=== PATIENT | male | born 1940 | race Caucasian/White ===

== ENCOUNTER 2022-01-16 10:32 | Outpatient (CLI) | payer MEDICARE, BC, SELFPAY ==
[2022-01-16 13:28] LABS: Chloride* 106 mmol/L (96-114); Potassium* 4.9 mmol/L (3.6-5.1); Sodium* 140 mmol/L (135-149)
[2022-01-16 13:30] LABS: Cholesterol* 204 mg/dL (90-199); Creatinine* 1.1 mg/dL (0.5-1.5); Estimated Glomerular Filt Rate 68 ml/min
[2022-01-16 13:31] LABS: Blood Urea Nitrogen* 23 mg/dL (7-30); Calcium* 8.8 mg/dL (8.4-10.6); Carbon Dioxide* 28 mmol/L (20-32); Glucose* 86 mg/dL (60-115); HDL Cholesterol* 42 mg/dL (>=40); LDL Cholesterol Calculated 130 mg/dL (<100); Triglycerides* 161 mg/dL (40-149)
[2022-01-16 14:07] LABS: PSA Screen* < 0.06 ng/mL (0.10-4.00)
== END 2022-01-16 10:33 | disposition home or self-care (01) ==
PROVIDERS: PCP Internal Medicine; Visit Provider Internal Medicine
DX: Z00.00 Encounter for general adult medical examination without abnormal findings (principal); I10 Essential (primary) hypertension; Z85.46 Personal history of malignant neoplasm of prostate; Z13.6 Encounter for screening for cardiovascular disorders; Z12.5 Encounter for screening for malignant neoplasm of prostate
CPT/HCPCS: 80048; 80061; 84153

== ENCOUNTER 2022-06-14 12:56 | Emergency (ER) | payer MEDICARE, BC, SELFPAY ==
[2022-06-14] VITALS (12 sets, daily range): BP systolic 159; BP diastolic 82; PULSE 56–64; RESP 18; TEMP 37.4; O2SAT 95–100; BMI 28.7
--- NOTE | 2022-06-14 13:51 | CRLHL7_ITS ---
For Patients: As a result of the Cures Act, medical imaging exams and procedure reports are released immediately into your electronic medical record. You may view this report before your referring provider. If you have questions, please contact your health care provider. INDICATION: [id number]. TECHNIQUE: Chest 1 views. COMPARISON: November 16, 2020. FINDINGS: Cardiovascular and mediastinum: Stable heart size and vasculature. Lungs and pleural spaces: Bibasilar subtle consolidations. Obscuration of the left hemidiaphragm, possibly related to airspace disease/trace pleural effusion.. No pneumothorax. Bones and soft tissues: No significant findings. IMPRESSION: Subtle bibasilar consolidations, possibly atelectasis or pneumonia in the appropriate clinical setting. Dictated by Miguelangel Gallagher MD @ 06/14/2022 3:20:35 PM (Electronically Signed)
[2022-06-14 14:17] LABS: Eosinophils Percent Auto 0.4 % (0.0-7.0); Hematocrit 36.6 % (37.0-53.0); Hemoglobin* 11.5 gm/dL (13.5-17.5); Immature Granulocytes Pct Auto 0.1 %; Lymphocytes Percent Auto 92.2 % (20-44); Mean Corpuscular HGB Conc 31 gm/dL (32-36); Mean Corpuscular Hemoglobin 28 pg (26-34); Mean Corpuscular Volume 90 fL (80-100); Monocytes Percent Auto 1.3 % (0.0-11.0); Platelet Count* 180 K/uL (140-440); RDW Coefficient of Variation % 13.5 % (11.5-15.5); Red Blood Count 4.05 m/uL (4.30-5.90)
[2022-06-14 14:37] LABS: Albumin* 3.6 g/dL (3.3-5.0); Chloride* 111 mmol/L (96-114); Sodium* 140 mmol/L (135-149)
[2022-06-14 14:38] LABS: Potassium* 4.5 mmol/L (3.6-5.1)
[2022-06-14 14:40] LABS: Creatinine* 1.3 mg/dL (0.5-1.5); Est. Creatinine Clearance* 46.02; Estimated Glomerular Filt Rate 55 ml/min
[2022-06-14 14:41] LABS: Alanine Aminotransferase* 19 U/L (4-50); Alkaline Phosphatase* 71 U/L (40-150); Aspartate Amino Transferase* 24 U/L (12-35); Bilirubin Direct* 0.1 mg/dL (0.0-0.5); Bilirubin Total* 0.6 mg/dL (0.1-1.5); Blood Urea Nitrogen* 25 mg/dL (7-30); Calcium* 8.5 mg/dL (8.4-10.6); Carbon Dioxide* 26 mmol/L (20-32); Glucose* 101 mg/dL (60-115); Magnesium* 2.1 mg/dL (1.5-2.6); Slide Review Reflex Yes; Total Protein* 6.1 g/dL (6.0-8.3); White Blood Count* 54.32 K/uL (4.50-11.00)
[2022-06-14 14:42] LABS: Slide Review Acceptable Review (Acceptable)
[2022-06-14 15:08] LABS: C Reactive Protein* < 0.5 mg/dL (0.5-1.0); NT Pro B Type NatriureticPept* 339 pg/mL; Troponin I* < 0.01 ng/mL (0.01-0.04)
--- NOTE | 2022-06-14 15:16 | ED_ITS ---
HPI - General Adult General Chief complaint: Shortness of Breath/Dyspnea Stated complaint: Shortness of breath Time Seen by Provider: 06/14/22 13:30 History of Present Illness HPI narrative: 82-year-old man presenting to the emergency department on recommendation after calling in to clinic. Had hoped to see his primary care provider does not have any availability. Apparently about 2 and half weeks ago had what he thought was an influenza like illness. Has continued to be quite fatigued and with shortness of breath since that time. Her his fatigue is such that does not even seem to have energy for the most basic of tasks. Describes it alternatively is a lack of motivation. Even mentions depression though this has not been an issue since many decades ago may have had some depression. Denies chest pain. He does not have history of heart problems. Denies cough though I do hear him cough as I exit the room. Apparently would be unproductive. No fever. Has not noticed much in the way of weight loss or gain; describes about 6 lb of recent fluctuation. No dysuria frequency urgency. Does have a history of CLL. Notes a to be relatively stable. Has not received treatment. Gets labs checked about every 6 months. I am able to see in this EMR while reviewing records a white count at a little over 37,000 in December of 2020. Information obtained through [place] later. Apparently white count was [id number] with platelets of a [id number] in February of 2022. Related Data Home Medications Medication Instructions Recorded Confirmed acetaminophen 325 mg tablet 325 - 600 mg PO DAILY PRN 01/16/22 06/14/22 ferrous fumarate-vitamin C 132 1 tab PO DAILY 01/16/22 06/14/22 mg-250 mg tablet ketoconazole 2 % topical cream 1 applic topical DAILY 01/16/22 06/14/22 sildenafil 100 mg tablet 100 mg PO .As Needed PRN 01/16/22 06/14/22 triamcinolone acetonide 0.1 % 1 topical QAM 01/16/22 05/09/22 topical ointment Previous Rx's Medication Instructions Recorded omeprazole 20 mg capsule,delayed 20 mg PO DAILY #90 caps 01/16/22 release triamterene 37.5 1 cap PO DAILY #90 caps 01/16/22 mg-hydrochlorothiazide 25 mg capsule amlodipine 5 mg tablet 5 mg PO QHS #45 tabs 05/09/22 Allergies Allergy/AdvReac Type Severity Reaction Status Date / Time almond oil Allergy Intermediate Face Verified 06/14/22 13:17 swelling Review of Systems Status of ROS: Reports: 10 or more systems reviewed and unremarkable except as noted in History and below [facility] Medical History (Updated 06/14/22 @ 17:09 by Jonnathan Park MD) Health care directive on file History of depression (2016) History of peptic ulcer (10/2011) History of upper gastrointestinal bleeding Surgical History (Updated 01/16/22 @ 08:51 by Rosa Allison MD) History of prostatectomy History of repair of hiatal hernia (2021) History of umbilical hernia repair (01/2007) Social History Smoking Status: Never smoker Do you use any of these nicotine containing products: None Second hand tobacco smoke exposure: No How often do you have a drink containing alcohol: never How often do you have six or more drinks on one occasion: Never AUDIT-C Alcohol total score: 0 Non-prescribed substance use: denies use Little interest or pleasure in doing things: several days Feeling down, depressed, or hopeless: several days service: No Exam Narrative: Exam Narrative: Pleasant. NAD. Reading a book when I enter the room. Breathing easily. Cranial nerves 2-12 look to be intact. Head is atraumatic. Oropharynx is unremarkable neck supple without lymphadenopathy. No JVD. Mucous membranes are not particularly pale. Lungs sound to be clear. Heart is with a regular rate and with a regular rhythm. Abdomen is soft nontender. Extremities are without edema -maybe a little dependent edema and around the ankles bilaterally. Const: Vital Signs, click to edit/add: Vital Signs - 24 hr 06/14/22 13:13 06/14/22 13:50 06/14/22 13:19 Temperature 99.3 F Pulse Rate Pulse Rate [Left P ulse Oximeter] 64 Respiratory Rate 18 Blood Pressure 159/82 H Blood Pressure [Ri ght Upper Arm] 159/82 H Pulse Oximetry 98 100 Oxygen Delivery Me thod Room Air 06/14/22 13:20 06/14/22 13:30 06/14/22 13:45 Temperature Pulse Rate 60 58 L 60 Pulse Rate [Left P ulse Oximeter] Respiratory Rate Blood Pressure Blood Pressure [Ri ght Upper Arm] Pulse Oximetry 98 95 95 Oxygen Delivery Me thod 06/14/22 14:00 06/14/22 14:15 06/14/22 14:30 Temperature Pulse Rate 56 L 59 L 56 L Pulse Rate [Left P ulse Oximeter] Respiratory Rate Blood Pressure Blood Pressure [Ri ght Upper Arm] Pulse Oximetry 95 97 96 Oxygen Delivery Me thod 06/14/22 14:45 06/14/22 15:00 06/14/22 15:15 Temperature Pulse Rate 57 L 61 58 L Pulse Rate [Left P ulse Oximeter] Respiratory Rate Blood Pressure Blood Pressure [Ri ght Upper Arm] Pulse Oximetry 96 97 96 Oxygen Delivery Nh thod Documenting provider has reviewed patient's vital signs: yes Course Vital Signs Vital signs: Initial Vital Signs Temperature 99.3 F 06/14/22 13:13 Temperature Source Temporal Artery Scan 06/14/22 13:13 Pulse Rate 64 06/14/22 13:13 Pulse Rhythm 06/14/22 13:13 Pulse Strength 3+ Normal 06/14/22 13:13 Respiratory Rate 18 06/14/22 13:13 Blood Pressure 159/82 H 06/14/22 13:13 Blood Pressure Mean 107 06/14/22 13:13 Blood Pressure Position Sitting 06/14/22 13:13 Pulse Oximetry 98 06/14/22 13:13 Oxygen Delivery Method 06/14/22 13:13 Vital Signs Temperature 99.3 F 06/14/22 13:13 Pulse Rate 64 06/14/22 13:13 Respiratory Rate 18 06/14/22 13:13 Blood Pressure 159/82 H 06/14/22 13:13 Pulse Oximetry 98 06/14/22 13:13 Oxygen Delivery Method 06/14/22 13:13 Temperature 99.3 F 06/14/22 13:13 Pulse Rate 58 L 06/14/22 15:15 Respiratory Rate 18 06/14/22 13:13 Blood Pressure 159/82 H 06/14/22 13:19 Pulse Oximetry 96 06/14/22 15:15 Oxygen Delivery Method 06/14/22 13:13 Medical Decision Making MDM Narrative Medical decision making narrative: Seems relatively well. Is not having any respiratory difficulty. Given duration and history of CLL though I think labs and at least chest x-ray are in order. Chest x-ray reviewed by me shows some increased density into the bases bilaterally. Radiology over-read questions pneumonia versus atelectasis. Monitored on oximetry without event. Labs rather unremarkable except for white count of 54,000 and hemoglobin which has drifted a little bit down to 11.5 from around 14 as I understand. Possibly CLL is related in his fatigue. Tested negative for influenza though doubtful any antigen present even if had been infected with this 2 and half weeks ago. COVID also negative. Given appearance in chest x-ray did add RSV but this was also negative. Did speak with heme Onc from [place]. They concur to treat for potential pneumonia with antibiotics and then close follow-up. Given injection of Rocephin in emergency department followup outpatient antibiotics. Lab Data Lab results reviewed: Yes I reviewed the patient's lab results Labs: Lab Results 06/14/22 06/14/22 06/14/22 Range/Units 13:51 14:06 14:06 WBC 54.32 H* (4.50-11.00) K/uL RBC 4.05 L (4.30-5.90) m/uL Hgb 11.5 L (13.5-17.5) gm/dL Hct 36.6 L (37.0-53.0) % MCV 90 (80-100) fL MCH 28 (26-34) pg MCHC 31 L (32-36) gm/dL RDW Coeff of Ramonita 13.5 (11.5-15.5) % Plt Count 180 (140-440) K/uL Neut % (Auto) 6.0 L (42.0-72.0) % Lymph % (Auto) 92.2 H (20-44) % Lares % (Auto) 1.3 (0.0-11.0) % Eos % (Auto) 0.4 (0.0-7.0) % Baso % (Auto) 0.0 (0.0-3.0) % Neut # (Auto) 3.30 (1.7-7.0) K/uL Lymph # (Auto) 50.10 H (0.90-2.90) K/uL [place] # (Auto) 0.70 (0.00-0.90) K/UL Eos # (Auto) 0.20 (0.00-0.50) K/uL Baso # (Auto) 0.00 (0.00-0.30) K/uL Diff Slide Review Acceptable Review (Acceptable) Sodium 140 (135-149) mmol/L Potassium 4.5 (3.6-5.1) mmol/L Chloride 111 (96-114) mmol/L Carbon Dioxide 26 (20-32) mmol/L BUN 25 (7-30) mg/dL Creatinine 1.3 (0.5-1.5) mg/dL Estimated Creat Clear 46.02 Estimated GFR 55 ml/min Glucose 101 (60-115) mg/dL Calcium 8.5 (8.4-10.6) mg/dL Magnesium 2.1 (1.5-2.6) mg/dL Total Bilirubin 0.6 (0.1-1.5) mg/dL Direct Bilirubin 0.1 (0.0-0.5) mg/dL AST 24 (12-35) U/L ALT 19 (4-50) U/L Alkaline Phosphatase 71 (40-150) U/L Troponin I < 0.01 L (0.01-0.04) ng/mL C-Reactive Protein < 0.5 L (0.5-1.0) mg/dL NT-Pro-B Natriuret Pep 339 pg/mL Total Protein 6.1 (6.0-8.3) g/dL Albumin 3.6 (3.3-5.0) g/dL Vitamin B12 (243-894) pg/mL TSH (0.270-4.20) uIU/mL Urine Color Yellow (Yellow) Urine Appearance Clear (Clear) Urine pH 6.0 (5.0-8.5) Ur Specific [place] 1.025 (1.000-1.030) Urine Protein Negative (Negative) Urine Glucose (UA) Negative (Negative) Urine Ketones Trace A (Negative) Urine Blood Negative (Negative) Urine Nitrite Negative (Negative) Urine Bilirubin Negative (Negative) Urine Urobilinogen 0.2 (0.2-1.0) Ur Leukocyte Esterase Negative (Negative) Urine RBC 0-2 (0-2) Urine WBC 0-2 (0-5) Ur Squamous Epith Cells None (None-Few) Urine Bacteria Few A (None) Fine Granular Casts Few A (None) SARS-CoV-2 (PCR) (Negative) Influenza Type A (PCR) (Negative) Influenza Type B (PCR) (Negative) RSV (PCR) (Negative) 06/14/22 06/14/22 06/14/22 Range/Units 14:06 14:06 14:40 WBC (4.50-11.00) K/uL RBC (4.30-5.90) m/uL Hgb (13.5-17.5) gm/dL Hct (37.0-53.0) % MCV (80-100) fL MCH (26-34) pg MCHC (32-36) gm/dL RDW Coeff of Ramonita (11.5-15.5) % Plt Count (140-440) K/uL Neut % (Auto) (42.0-72.0) % Lymph % (Auto) (20-44) % Lares % (Auto) (0.0-11.0) % Eos % (Auto) (0.0-7.0) % Baso % (Auto) (0.0-3.0) % Neut # (Auto) (1.7-7.0) K/uL Lymph # (Auto) (0.90-2.90) K/uL La[place] # (Auto) (0.00-0.90) K/UL Eos # (Auto) (0.00-0.50) K/uL Baso # (Auto) (0.00-0.30) K/uL Diff Slide Review (Acceptable) Sodium (135-149) mmol/L Potassium (3.6-5.1) mmol/L Chloride (96-114) mmol/L Carbon Dioxide (20-32) mmol/L BUN (7-30) mg/dL Creatinine (0.5-1.5) mg/dL Estimated Creat Clear Estimated GFR ml/min Glucose (60-115) mg/dL Calcium (8.4-10.6) mg/dL Magnesium (1.5-2.6) mg/dL Total Bilirubin (0.1-1.5) mg/dL Direct Bilirubin (0.0-0.5) mg/dL AST (12-35) U/L ALT (4-50) U/L Alkaline Phosphatase (40-150) U/L Troponin I (0.01-0.04) ng/mL C-Reactive Protein (0.5-1.0) mg/dL NT-Pro-B Natriuret Pep pg/mL Total Protein (6.0-8.3) g/dL Albumin (3.3-5.0) g/dL Vitamin B12 370 (243-894) pg/mL TSH 0.826 (0.270-4.20) uIU/mL Urine Color (Yellow) Urine Appearance (Clear) Urine pH (5.0-8.5) Ur Specific [place] (1.000-1.030) Urine Protein (Negative) Urine Glucose (UA) (Negative) Urine Ketones (Negative) Urine Blood (Negative) Urine Nitrite (Negative) Urine Bilirubin (Negative) Urine Urobilinogen (0.2-1.0) Ur Leukocyte Esterase (Negative) Urine RBC (0-2) Urine WBC (0-5) Ur Squamous Epith Cells (None-Few) Urine Bacteria (None) Fine Granular Casts (None) SARS-CoV-2 (PCR) Negative SARS-CoV-2 (Negative) Influenza Type A (PCR) Negative PCR FLU A (Negative) Influenza Type B (PCR) Negative PCR FLU B (Negative) RSV (PCR) Negative PCR RSV (Negative) Discharge Plan Discharge Clinical Impression: Pneumonia, Chronic lymphocytic leukemia, Fatigue Patient Disposition: Home, Self-Care Condition: Stable Additional Instructions: Stay well-hydrated. Doxycycline from [facility]. Return for persistent increasing shortness of breath, fever and associated worsening weakness, chest pain, repeated vomiting. Call to schedule with your editor index to be seen after course of antibiotics. Prescriptions: No Action triamcinolone acetonide 0.1 % ointment 1 topical QAM Rx Instructions: use sparingly ketoconazole 2 % cream 1 applic topical DAILY ferrous fumarate-vitamin C 132-250 mg tablet 1 tab PO DAILY acetaminophen 325 mg tablet 325 - 600 mg PO DAILY PRN Rx Instructions: NO MORE THAN 4000 MG/DAY sildenafil 100 mg tablet 100 mg PO .As Needed PRN Rx Instructions: TAKE 1 TAB 1 HR PRIOR TO INTERCOURSE triamterene-hydrochlorothiazid 37.5-25 mg capsule 1 cap PO DAILY Qty: 90 3RF omeprazole 20 mg capsule,delayed release(DR/EC) 20 mg PO DAILY Qty: 90 3RF amlodipine 5 mg tablet 5 mg PO QHS Qty: 45 0RF Follow Up/Referrals: Rosa Allison MD [Primary Care Provider] - Stand Alone Forms: [facility] Info Instructions
[2022-06-14 15:27] LABS: PCR FLU A Negative PCR FLU A (Negative); PCR FLU B Negative PCR FLU B (Negative); PCR RSV Negative PCR RSV (Negative)
[2022-06-14 15:30] LABS: SARS PCR* Negative SARS-CoV-2 (Negative)
[2022-06-14 15:35] LABS: Thyroid Stimulating Hormone* 0.826 uIU/mL (0.270-4.20)
[2022-06-14 15:53] LABS: Vitamin B12* 370 pg/mL (243-894)
[2022-06-14 16:14] LABS: Appearance Urine Clear (Clear); Bilirubin Urine Negative (Negative); Blood Urine Negative (Negative); Color Urine Yellow (Yellow); Glucose Urine Negative (Negative); Ketones Urine Trace (Negative); Leukocyte Esterase Urine Negative (Negative); Nitrite Urine Negative (Negative); Protein Urine Negative (Negative); Specific Gravity Urine 1.025 (1.000-1.030); Urobilinogen Urine 0.2 (0.2-1.0)
[2022-06-14 16:30] LABS: Bacteria Urine Few; Fine Granular Casts Urine Few; RBC Urine 0-2 (0-2); WBC Urine 0-2 (0-5)
[2022-06-14] MEDS: LIDOCAINE 1% 5 ml (pf) 5 ML VIAL 2.1 ML IM (17:15)
[2022-06-14] MEDS: cefTRIAXone 1 GM VIAL IM (17:15)
== END 2022-06-14 17:25 | disposition home or self-care (01) ==
PROVIDERS: Emergency Provider Family Medicine; PCP Internal Medicine
DX: J18.9 Pneumonia, unspecified organism (principal); C91.10 Chronic lymphocytic leukemia of B-cell type not having achieved remission; R53.83 Other fatigue
CPT/HCPCS: 36415; 71045; 80048; 80076; 81001; 82607; 83735; 83880; 84443; 84484; 85025; 86140; 87086; 87502; 87634; 87635; 94761; 96372; 99284; J0696

== ENCOUNTER 2022-06-22 10:43 | Outpatient (CLI) | payer MEDICARE, BC, SELFPAY ==
[2022-06-22 11:01] LABS: Vitamin B12* 422 pg/mL (243-894)
[2022-06-22 17:43] LABS: Hematocrit 40.4 % (37.0-53.0); Hemoglobin* 12.6 gm/dL (13.5-17.5); Mean Corpuscular HGB Conc 31 gm/dL (32-36); Mean Corpuscular Hemoglobin 29 pg (26-34); Mean Corpuscular Volume 92 fL (80-100); Platelet Count* 134 K/uL (140-440); Red Blood Count 4.38 m/uL (4.30-5.90)
[2022-06-22 19:27] LABS: Slide Review Reflex Yes
[2022-06-22 19:28] LABS: Slide Review Acceptable Review (Acceptable)
== END 2022-06-22 10:44 | disposition home or self-care (01) ==
PROVIDERS: PCP Internal Medicine; Visit Provider Internal Medicine
DX: E53.8 Deficiency of other specified B group vitamins (principal); C91.10 Chronic lymphocytic leukemia of B-cell type not having achieved remission
CPT/HCPCS: 82607; 85027

== ENCOUNTER 2022-12-10 01:33 | Emergency (ER) | payer MEDICARE, BC, SELFPAY ==
[2022-12-10] VITALS (9 sets, daily range): BP systolic 121–165; BP diastolic 69–96; PULSE 43–62; RESP 20; O2SAT 95–97
--- NOTE | 2022-12-10 01:54 | ED_ITS ---
HPI - General Adult General Chief complaint: Chest Pain Stated complaint: chest pain, low pulse, low blood pressure Time Seen by Provider: 12/10/22 01:54 History of Present Illness HPI narrative: Pt aox4, ABCs intact. Pt arrives with for evaluation of chest pressure that woke him up from sleep around 0030. Patient states that the pain goes up into both sides of his neck. Denies SOB or nausea 82-year-old man presenting to the emergency department with some pressure that he has been feeling in both sides of his neck. He noticed that his heart was in the 130s and his pressure was low. Does not report irregular heartbeat. They mention that he was feeling anxious and then wanted his close. She is standing at his bedside holding his hand. Does have a documented history of CLL, anxiety and hypertension, GERD and dysphagia. Tends toward bradycardia they report. Over the last 6 weeks perhaps he has had some soreness in his anterior outer, in the muscle area, the anterior left peguero. Was at 1 point some sort of a strain but it is little unclear. I believe the concern here is a potential blood clot. Spends lot of time gardening, wearing flip-flops sounds like. Prior to this event was without shortness of breath or chest pain. Related Data Home Medications Medication Instructions Recorded Confirmed acetaminophen 325 mg tablet 325 - 600 mg PO DAILY PRN 01/16/22 12/10/22 ferrous fumarate-vitamin C 132 1 tab PO DAILY 01/16/22 12/10/22 mg-250 mg tablet sildenafil 100 mg tablet 100 mg PO .As Needed PRN 01/16/22 12/10/22 triamcinolone acetonide 0.1 % 1 topical QAM 01/16/22 09/26/22 topical ointment doxycycline monohydrate 100 mg 100 mg PO BID 06/26/22 12/10/22 tablet terbinafine HCl 250 mg tablet 250 mg PO QDAY PRN 06/26/22 12/10/22 Previous Rx's Medication Instructions Recorded omeprazole 20 mg capsule,delayed 20 mg PO DAILY #90 caps 01/16/22 release triamterene 37.5 1 cap PO DAILY #90 caps 01/16/22 mg-hydrochlorothiazide 25 mg capsule amlodipine 5 mg tablet 5 mg PO QHS #90 tabs 06/26/22 ketoconazole 2 % topical cream 1 applic topical DAILY #60 grams 11/21/22 Allergies Allergy/AdvReac Type Severity Reaction Status Date / Time almond oil Allergy Intermediate Face Verified 12/10/22 01:39 swelling Review of Systems Status of ROS: Reports: 6 or more systems reviewed and unremarkable except as noted in History and below [facility] Medical History (Updated 12/10/22 @ 04:57 by Jonnathan Park MD) Seborrheic dermatitis ?L21.9 - Seborrheic dermatitis, unspecified (ICD-10) Health care directive on file ?Z78.9 - Other specified health status (ICD-10) History of upper gastrointestinal bleeding ?Z87.19 - Personal history of other diseases of the digestive system (ICD-10) History of peptic ulcer (10/2011) ?Z87.11 - Personal history of peptic ulcer disease (ICD-10) History of depression (2016) ?Z86.59 - Personal history of other mental and behavioral disorders (ICD-10) Surgical History History of prostatectomy ?Z90.79 - Acquired absence of other genital organ(s) (ICD-10) History of umbilical hernia repair (01/2007) ?Z98.890 - Other specified postprocedural states (ICD-10) ?Z87.19 - Personal history of other diseases of the digestive system (ICD-10) History of repair of hiatal hernia (2021) ?Z98.890 - Other specified postprocedural states (ICD-10) ?Z87.19 - Personal history of other diseases of the digestive system (ICD-10) Social History Smoking Status: Never smoker Do you use any of these nicotine containing products: None Second hand tobacco smoke exposure: No How often do you have a drink containing alcohol: never How often do you have six or more drinks on one occasion: Never AUDIT-C Alcohol total score: 0 Non-prescribed substance use: denies use Little interest or pleasure in doing things: several days Feeling down, depressed, or hopeless: several days service: No Exam Narrative: Exam Narrative: Pleasant. NAD. Breathing easily. Neck is supple nontender. Oropharynx is unremarkable. Cranial nerves 2-12 intact. There is no reproducible discomfort to palpation about the neck or jaw. Lungs are clear. Heart in a slow but regular rate and rhythm. Abdomen is soft nontender. He is well-perfused peripherally. Examination of the left lower leg in particular has some soreness described along the anterior tibial musculature. I would say negative Homans. There is no edema in the lower extremities. Const: Vital Signs, click to edit/add: Vital Signs - 24 hr 12/10/22 01:39 12/10/22 02:37 12/10/22 03:00 Pulse Rate 51 L 48 L Pulse Rate [Pulse Oximeter] 62 Respiratory Rate 20 Blood Pressure Blood Pressure [Le ft Upper Arm] 165/96 H Pulse Oximetry 97 96 96 Oxygen Delivery Me thod Room Air 12/10/22 03:02 12/10/22 03:33 12/10/22 04:02 Pulse Rate 49 L 53 L Pulse Rate [Pulse Oximeter] Respiratory Rate Blood Pressure 125/80 126/87 Blood Pressure [Le ft Upper Arm] Pulse Oximetry 96 97 Oxygen Delivery Me thod 12/10/22 04:04 12/10/22 04:30 12/10/22 04:32 Pulse Rate 48 L 43 L 44 L Pulse Rate [Pulse Oximeter] Respiratory Rate Blood Pressure 121/69 Blood Pressure [Le ft Upper Arm] Pulse Oximetry 97 95 96 Oxygen Delivery Me thod Documenting provider has reviewed patient's vital signs: yes Course Vital Signs Vital signs: Initial Vital Signs Pulse Rate 62 12/10/22 01:39 Respiratory Rate 20 12/10/22 01:39 Blood Pressure 165/96 H 12/10/22 01:39 Blood Pressure Mean 119 H 12/10/22 01:39 Pulse Oximetry 97 12/10/22 01:39 Oxygen Delivery Method Room Air 12/10/22 01:39 Vital Signs Pulse Rate 62 12/10/22 01:39 Respiratory Rate 20 12/10/22 01:39 Blood Pressure 165/96 H 12/10/22 01:39 Pulse Oximetry 97 12/10/22 01:39 Oxygen Delivery Method Room Air 12/10/22 01:39 Pulse Rate 44 L 12/10/22 04:32 Respiratory Rate 20 12/10/22 01:39 Blood Pressure 121/69 12/10/22 04:32 Pulse Oximetry 96 12/10/22 04:32 Oxygen Delivery Method Room Air 06/25/23 01:39 Medical Decision Making MDM Narrative Medical decision making narrative: I would watch on monitor for some sort of tachyarrhythmia. He does produce PVCs as I am watching. This may have been exacerbation of anxiety. Perhaps these sy mptoms symptoms were caused by GERD. Certainly could have been ischemic cardiac event and will be looking for this in laboratory evaluation. Pulmonary embolus is a possibility too. Vascular disruption possibility. S discomfort in his shins/left lower leg is inconsistent with location for DVT. I think this more of a muscular issue. EKG as below. Repeat troponins were negative. D-dimer was normal. White count elevated as typical. Symptoms faded to resolution. Overall improved. See patient discharge plan Medical Records Medical records reviewed: Yes I reviewed the patient's medical records Lab Data Lab results reviewed: Yes I reviewed the patient's lab results Labs: Lab Results 12/10/22 12/10/22 12/10/22 Range/Units 00:55 01:55 02:07 WBC 40.86 H* (4.50-11.00) K/uL RBC 4.88 (4.30-5.90) m/uL Hgb 14.4 (13.5-17.5) gm/dL Hct 44.6 (37.0-53.0) % MCV 91 (80-100) fL MCH 30 (26-34) pg MCHC 32 (32-36) gm/dL RDW Coeff of Ramonita 13.7 (11.5-15.5) % Plt Count 102 L (140-440) K/uL Neut % (Auto) 4.7 L (42.0-72.0) % Lymph % (Auto) 93.5 H (20-44) % [place] % (Auto) 1.4 (0.0-11.0) % Eos % (Auto) 0.3 (0.0-7.0) % Baso % (Auto) 0.1 (0.0-3.0) % Neut # (Auto) 1.90 (1.7-7.0) K/uL Lymph # (Auto) 38.20 H (0.90-2.90) K/uL [place] # (Auto) 0.60 (0.00-0.90) K/UL Eos # (Auto) 0.10 (0.00-0.50) K/uL Baso # (Auto) 0.00 (0.00-0.30) K/uL Diff Slide Review Acceptable Review (Acceptable) D-Dimer Quant (PE/DVT) 0.39 (0.00-0.50) ug/ml Sodium 142 (135-149) mmol/L Potassium 4.4 (3.6-5.1) mmol/L Chloride 106 (96-114) mmol/L Carbon Dioxide 27 (20-32) mmol/L BUN 29 (7-30) mg/dL Creatinine 1.3 (0.5-1.5) mg/dL Estimated Creat Clear 47.46 Estimated GFR 55 ml/min Glucose 95 (60-115) mg/dL Calcium 9.1 (8.4-10.6) mg/dL Troponin I < 0.01 L (0.01-0.04) ng/mL C-Reactive Protein < 0.5 L (0.5-1.0) mg/dL NT-Pro-B Natriuret Pep 324 pg/mL POC Troponin I 0.00 L (0.01-0.04) ng/ml 12/10/ Range/Units 03:35 WBC (4.50-11.00) K/uL RBC (4.30-5.90) m/uL Hgb (13.5-17.5) gm/dL Hct (37.0-53.0) % MCV (80-100) fL MCH (26-34) pg MCHC (32-36) gm/dL RDW Coeff of Ramonita (11.5-15.5) % Plt Count (140-440) K/uL Neut % (Auto) (42.0-72.0) % Lymph % (Auto) (20-44) % [place] % (Auto) (0.0-11.0) % Eos % (Auto) (0.0-7.0) % Baso % (Auto) (0.0-3.0) % Neut # (Auto) (1.7-7.0) K/uL Lymph # (Auto) (0.90-2.90) K/uL [place] # (Auto) (0.00-0.90) K/UL Eos # (Auto) (0.00-0.50) K/uL Baso # (Auto) (0.00-0.30) K/uL Diff Slide Review (Acceptable) D-Dimer Quant (PE/DVT) (0.00-0.50) ug/ml Sodium (135-149) mmol/L Potassium (3.6-5.1) mmol/L Chloride (96-114) mmol/L Carbon Dioxide (20-32) mmol/L BUN (7-30) mg/dL Creatinine (0.5-1.5) mg/dL Estimated Creat Clear Estimated GFR ml/min Glucose (60-115) mg/dL Calcium (8.4-10.6) mg/dL Troponin I (0.01-0.04) ng/mL C-Reactive Protein (0.5-1.0) mg/dL NT-Pro-B Natriuret Pep pg/mL POC Troponin I 0.00 L (0.01-0.04) ng/ml ECG Data Attestation: I personally reviewed and interpreted this ECG as follows: (Normal sinus rhythm. Left anterior fascicular block. Rate of 60) Discharge Plan Discharge Clinical Impression: Atypical chest pain Patient Disposition: Home w/ Parent or Adult Condition: Improved Additional Instructions: Yes it would seem that you had, per your description, an episode of rapid heart rate. If this continues to happen I would think that we would want to somehow monitor your heart for a longer period of time. This may have just been some stress/anxiety. Hard to know that at this time. Keep doing things out there that you find enjoyable like gardening. I see no reason to restrict your activities at this time. Otherwise return for recurrence of persistent and rapid heart rate, continued chest pain particularly associated with shortness of breath/nausea/diaphoresis. See handout on peguero pain. I would ice this sore area twice daily over the next few days. Reassess sometime in 10-14 days whether this is continuing to be an issue and needs further evaluation. Prescriptions: No Action triamcinolone acetonide 0.1 % ointment 1 topical QAM Rx Instructions: use sparingly ferrous fumarate-vitamin C 132-250 mg tablet 1 tab PO DAILY acetaminophen 325 mg tablet 325 - 600 mg PO DAILY PRN Rx Instructions: NO MORE THAN 4000 MG/DAY sildenafil 100 mg tablet 100 mg PO .As Needed PRN Rx Instructions: TAKE 1 TAB 1 HR PRIOR TO INTERCOURSE triamterene-hydrochlorothiazid 37.5-25 mg capsule 1 cap PO DAILY Qty: 90 3RF omeprazole 20 mg capsule,delayed release(DR/EC) 20 mg PO DAILY Qty: 90 3RF doxycycline monohydrate 100 mg tablet 100 mg PO BID terbinafine HCl 250 mg tablet 250 mg PO QDAY PRN amlodipine 5 mg tablet 5 mg PO QHS Qty: 90 3RF ketoconazole 2 % cream 1 applic topical DAILY Qty: 60 0RF Follow Up/Referrals: Rosa Allison MD [Primary Care Provider] - Stand Alone Forms: [facility] Info Instructions
[2022-12-10 02:01] LABS: Basophils Percent Auto 0.1 % (0.0-3.0); Eosinophils Percent Auto 0.3 % (0.0-7.0); Hematocrit 44.6 % (37.0-53.0); Hemoglobin* 14.4 gm/dL (13.5-17.5); Lymphocytes Percent Auto 93.5 % (20-44); Mean Corpuscular HGB Conc 32 gm/dL (32-36); Mean Corpuscular Hemoglobin 30 pg (26-34); Mean Corpuscular Volume 91 fL (80-100); Monocytes Percent Auto 1.4 % (0.0-11.0); Neutrophils Percent Auto 4.7 % (42.0-72.0); Platelet Count* 102 K/uL (140-440); RDW Coefficient of Variation % 13.7 % (11.5-15.5); Red Blood Count 4.88 m/uL (4.30-5.90)
--- OUTSIDE RECORDS SUMMARY | 2022-12-10 02:11 | XMS_ITS | Continuity of Care Document ---
Author Name Unknown Organization [facility] Address [address] [address] [place] [address] Phone Care Team Providers Care Crane Crew Supervisor Name Role Phone No Information Unavailable Unavailable Allergies, Adverse Reactions, Alerts Substance Reaction Status Criticality almond Active No Information Medications Medication Instructions Dosage Effective Dates (start - stop) Status Comments EpiPen 2-Rick 0.3 mg/0.3 mL injection, auto-injector inject 0.3 milliliter by intramuscular route once as needed for anaphylaxis 0.3 MG - Active omeprazole 20 mg capsule,delayed release take 2 capsule by oral route every day before a meal 40 MG - Active Viagra 100 mg tablet take 1 tablet by or al route every day as needed approximately 1 hour before sexual activity 100 MG - Active triamterene 37.5 mg-hydrochlorothiazi de 25 mg capsule take 2 capsule by oral route every day 2 capsule - Active Procedures Procedure Date Ugi Endo; W/insrt Guide Wire Ugi Endo; W/bx 1/mx Level Iv-surg Path Gross/micro 18 Offic/outpt E&m New Mod-hi Advance Directives Directive Yes / No Effective Date File Name No Information Encounters Encounter Description Practice Location Reason(s) For Visit Diagnoses Date Provider Providers Copied on Encounter [facility], [address] [address], [place], [place], [id number], [place] tel:[phone] No Information No Information Referring Provider: Rosa Allison MD E, [address] [place], [address]. tel:[phone] [facility] [place], [address] [address], [facility] [place], [id number], tel:[phone] [facility] Hiatal herniaSchatzki's ring of distal esophagusDisease of esophagus, unspecifiedChron ic gastric ulcer without hemorrhage or perforationDiaph ragmatic hernia without obstruction or gangreneChronic gastric ulcer without hemorrhage or perforation [address], [id number], . tel:[phone] Referring Provider: Rosa Chavez, [address] [place], [address]. tel:[phone] Offic/outpt E&m New Mod-hi [facility], [address] [address], [facility] [place], [id number], [place] tel:[phone] [facility] GI Symptoms or Concerns (chief complaint) Esophageal dysphagiaElevate d blood-pressure reading, w/o diagnosis of htn [address] [place] [address], [id number], [place]. tel:[phone] Referring Provider: Rosa Chavez, [address] [place], [address]. tel:[phone] Family History Family Member Type Diagnosis Age At Onset Sister Problem (finding) peptic ulceration Daughter Problem (finding) Alive and well Sister Problem (finding) celiac disease Mother Problem (finding) Mother Problem (finding) diverticulitis of colon Sister Problem (finding) Irritable bowel disease Sister Problem (finding) Alive and well Immunizations Vaccine Date Status Comments Influenza, injectable, quadr ivalent, preservative free, 3 yrs or older administered Source : Other Provider Payers Payer name Insurance type Covered alliance party ID Authoriza tion(s) No Information Social History Type Description Quantity Date Captured Comments Sex Male Smoking Status No Information Chief Complaint And Reason For Visit No Information Reason For Referral Reason For Referral No Information Plan Of Treatment Date Type Action Status No Information History Of Present Illness Encounter Date Complaint History Of Prese nt Illness GI Symptoms or Concerns An appro priate history, physical exam and review of systems was obtained today in clinic and recorded on electronic medical record. Please see below for my assessment and plan.I had the pleasure of seeing Bandar Mcnair today in clinic for difficulty swallowing, worsening over the last two years or so. He is a 77-year-old man with history of chronic disease associated anemia, anxiety, prostate cancer, CLL, heartburn, and hypertension, who presents for worsening dysphagia primarily to solid foods over the last two years. He denies any early satiety, weight loss, vomiting, or hematemesis. He describes mostly solid foods seeming to get stuck in his throat and needing to swallow liquids to get them down. He denies any previous food impactions. He also denies any diarrhea, abdominal pain, melena, or hematochezia. He does have some mild heartburn symptoms, but these are well controlled with omeprazole daily. He has had a upper endoscopy several years ago, which was significant b Functional Status Date Functional Assessmen t No Information Instructions Date Instruction Additional Infor mation Hiatal Hernia Related to Hiata l hernia Schatzki's Ring Related to Hiata l hernia 1. Schedule upper en doscopy to assess for any obstructive lesions and we will plan for a empiric dilation even if no clear stricture is found.2. Continue with omeprazole daily.3. Reviewed diet and lifestyle modification for reflux.4. If no source of dysphagia found on his upper endoscopy and no better after a potential empiric dilation, then we would consider esophageal manometry testing in the future to rule out dysmotility disorder.5. We will schedule any further clinic followup depending on the results of the endoscopy. Related to Esophageal dysphagia Gastroesophageal Reflux Disease Related to Esophageal dysphagia Hiatal Hernia Related to Esoph ageal dysphagia Assessments Type Assessment Date No Information Patient Care Teams Name Effective Dates (start - stop) Status Members No Information
--- OUTSIDE RECORDS SUMMARY | 2022-12-10 02:12 | XMS_ITS | Continuity of Care Document ---
Author Name Unknown Organization [facility] Address [address] [address] [place] [address] Phone Care Team Providers Care Mill Operator Name Role Phone No Information Unavailable Unavailable [...] Encounter [facility], [address] [address], [place], [place], [id number], [place] tel:[phone] No Information No Information Referring Provider: Rosa Allison MD E, [address] [place], [address]. tel:[phone] [facility] [place], [address] [address], [facility] [place], [id number], tel:[phone] [facility] Hiatal herniaSchatzki's ring of distal esophagusDisease of esophagus, unspecifiedChron ic gastric ulcer without hemorrhage or perforationDiaph ragmatic hernia without obstruction or gangreneChronic gastric ulcer without hemorrhage or perforation [address], [id number], . tel:[phone] Referring Provider: Rosa Chavez, [address] [place], [address]. tel:[phone] Offic/outpt E&m New Mod-hi [facility], [address] [address], [facility] [place], [id number], [place] tel:[phone] [facility] GI Symptoms or Concerns (chief complaint) Esophageal dysphagiaElevate d blood-pressure reading, w/o diagnosis of htn [address] [place] [address], [id number], [place]. tel:[phone] Referring Provider: Rosa Chavez, [address] [place], [address]. tel:[phone] Family History Family Member Type Diagnosis Age [...] Provider Payers Payer name Insurance type Covered libertarian ID Authoriza tion(s) No Information Social History [...]
[2022-12-10 02:15] LABS: Chloride* 106 mmol/L (96-114); Potassium* 4.4 mmol/L (3.6-5.1); Sodium* 142 mmol/L (135-149)
[2022-12-10 02:18] LABS: Carbon Dioxide* 27 mmol/L (20-32); Creatinine* 1.3 mg/dL (0.5-1.5); Est. Creatinine Clearance* 47.46; Estimated Glomerular Filt Rate 55 ml/min
[2022-12-10 02:19] LABS: Blood Urea Nitrogen* 29 mg/dL (7-30); Calcium* 9.1 mg/dL (8.4-10.6); Glucose* 95 mg/dL (60-115)
[2022-12-10 02:33] LABS: Slide Review Reflex Yes; White Blood Count* 40.86 K/uL (4.50-11.00)
[2022-12-10 02:40] LABS: Slide Review Acceptable Review (Acceptable)
[2022-12-10 02:41] LABS: Troponin I* < 0.01 ng/mL (0.01-0.04)
[2022-12-10 02:52] LABS: D Dimer Quantitative* 0.39 ug/ml (0.00-0.50)
[2022-12-10 09:08] LABS: C Reactive Protein* < 0.5 mg/dL (0.5-1.0); NT Pro B Type NatriureticPept* 324 pg/mL
== END 2022-12-10 05:19 | disposition home or self-care (01) ==
PROVIDERS: Emergency Provider Family Medicine; PCP Internal Medicine
DX: R07.89 Other chest pain (principal)
CPT/HCPCS: 36415; 80048; 83880; 84484; 85025; 85379; 86140; 93005; 99284

== ENCOUNTER 2023-02-09 07:39 | Outpatient (CLI) | payer MEDICARE, BC, SELFPAY | END 2023-02-09 07:40 | disposition home or self-care (01) | LOC: NFLDREF 02-12 09:06 | PROVIDERS: PCP Internal Medicine; Referring Provider Internal Medicine; Visit Provider Internal Medicine | DX: I10 Essential (primary) hypertension (principal); Z85.46 Personal history of malignant neoplasm of prostate | CPT/HCPCS: 80048; 84153 ==

== ENCOUNTER 2023-08-27 07:44 | Outpatient (CLI) | payer MEDICARE, BC, SELFPAY | END 2023-08-27 07:45 | disposition home or self-care (01) | LOC: NFLDREF 09-07 23:55 | PROVIDERS: PCP Internal Medicine; Referring Provider Internal Medicine; Visit Provider Internal Medicine | DX: E53.8 Deficiency of other specified B group vitamins (principal); C91.10 Chronic lymphocytic leukemia of B-cell type not having achieved remission | CPT/HCPCS: 82607 ==

== ENCOUNTER 2024-03-04 07:35 | Outpatient (CLI) | payer MEDICARE, BC, SELFPAY ==
--- OUTSIDE RECORDS SUMMARY | 2024-03-06 11:24 | XMS_ITS | Encounter Summary ---
Author Organization [facility] Address [address] [place] [address] Care Team Providers Care Coil Winder Repair Name Role Phone Elsewhere, Pcp Primary Care Provider Unavailabl e Reason for Visit * Reason Onset Date Comments Results 12/17/2023 Encounter Details Date Type Department Care Team (Late st Contact Info) Description 12/17/2023 Clinical Communication Division of Hematology in [place], [place] [address] [place] [phone] Rocio Woo R.N. [address] [place] [phone] Results Social History Tobacco Use Types Packs/Day Years Used Date Smoking Tobacco: Never Smokeless Tobacco: Never Alcohol Use Standard Drinks/Week Comments Never 0 (1 standard drink = 0.6 oz pur e alcohol) [facility] Utilities Answer Date Recorded In the past 12 months has [facility] [employer], gas, oil, or water [employer] threatened to shut off services in your home? No 06/17/2023 Humiliation, Afraid, Rape, and Kick questionnair e Answer Date Recorded Within the last year, have y ou been afraid of your partner or ex-partner? No 04/21/2022 Within the last year, have y ou been humiliated or emotionally abused in other ways by your partner or ex-partner? No Within the last year, have y ou been kicked, hit, slapped, or otherwise physically hurt by your partner or ex-partner? No 04/21/2022 Within the last year, have y ou been raped or forced to have any kind of sexual activity by your partner or ex-partner? No 04/21/2022 Social Connection and Isolation Panel [NHANES] A nswer Date Recorded In a typical week, how many times do you talk on the phone with family, friends, or neighbors? Twice a week 04/21/20 22 How often do you get togethe r with friends or relatives? Once a week 04/21/2022 How often do you attend chur ch or hoahaoism services? Never 04/21/2022 Do you belong to any clubs o r organizations such as restorationist groups, unions, fraternal or athletic groups, or school groups? No 04/21/2022 How often do you attend meet ings of the clubs or organizations you belong to? Never 04/21/2022 Are you , , di vorced, , never , or living with a partner? Living with partner 04/21/2022 AUDIT-C Answer Date Recorded Q1: How often do you have a drink containing alc ohol? Never 04/21/2022 Average Number of Drinks Not on file 022 Frequency of Binge Drinking Not on file 09/2021 Overall Financial Resource Strain (CARDIA) Answe r Date Recorded How hard is it for you to pa y for the very basics like food, housing, medical care, and heating? Not hard at all 04/21/2022 [facility] - Occupational Stress Questionnaire Answer Date Recorded Do you feel stress - tense, restless, nervous, or anxious, or unable to sleep at night because your mind is troubled all the time - these days? Rather much 04/21/2022 Exercise Vital Sign Answer Date Recorde d On average, how many days pe r week do you engage in moderate to strenuous exercise (like a brisk walk)? 3 days 06/17/2023 On average, how many minutes do you engage in exercise at this level? 50 min 06/17/2023 Hunger Vital Sign Answer Date Recorded Within the past 12 months, y ou worried that your food would run out before you got the money to buy more. Never true 06/17/20 23 Within the past 12 months, t he food you bought just didn't last and you didn't have money to get more. Never true 06/17/2023 PRAPARE - Transportation Answer Date Re corded In the past 12 months, has l ack of transportation kept you from medical appointments or from getting medications? No 05/20 In the past 12 months, has l ack of transportation kept you from meetings, work, or from getting things needed for daily living? No 06/17/2023 Nutrition Answer Date Recorded Nutrition: EVOO Fat Source Yes 06/17 On average, how many serving s of fruits and vegetables do you eat per day (serving size is equal to 1 cup or approximately the size of a tennis ball)? 0-2 06/17/2023 Dental Answer Date Recorded Dental: Regular Dentist Yes 04/21/20 Employment Answer Date Recorded Employment status Retired 06/17/2023 Housing Stability Answer Date Recorded What is your living situation today? I have a [facility] place to live 06/17/2023 Education Answer Date Recorded What is the highest level of school you have completed or the highest degree you have received? Doctorate 02/22/2021 Sex and Gender Information Value Date Recorded Sex Assigned at Male 02/22/2021 5:30 AM CDT Gender Identity Male 02/22/2021 5:30 AM CDT Sexual Orientation Straight 02/22/2021 5: 30 AM CDT documented as of this encounter Miscellaneous Notes * Telephone Encounter - Rocio Woo I. RThanh - 12/17/2023 9:41 AM CDT SUBJECTIVE CHIEF COMPLAINT / REASON FOR CALL Results Information Discussed ----- Message from Vonnie Pickett P.A.-C., M.S. sent at 12/17/2023 9:27 AM CDT ----- Can you please let him know that I reviewed the results and discussed with Dr. Steele, who recommends ongoing observation and no further testing at this time. Thanks! Patient had no further questions/concerns. PLAN Disposition/Recommendation: CLL on observation. Follow up in May 2024 (6 month follow up) Information/Education: patient/caller able to teach back Caller agreeable to plan of care: yes The following references were used: provider Vonnie Dobbins PA-C recommendations. documented in this encounter Plan of Treatment Not on file documented as of this encounter Visit Diagnoses Not on filedocumented in this encounter Care Teams Coil Winder Repair Relationship Specialty Start Date End Date Elsewhere, Pcp PCP - General Internal Medicine 08/03/21 documented as of this encounter
--- OUTSIDE RECORDS SUMMARY | 2024-03-06 11:24 | XMS_ITS | Referral Summary ---
Author Organization [facility] Address [address] [place] [address] Care Team Providers Care Fire Department Marine Engineer Name Role Phone Elsewhere, Pcp Primary Care Provider Unavailabl e Source Comments Patient records contain information from all sites at [facility]. For routine questions regarding patient records, call [phone] during business hours, M-F 8:00 AM - 5:00 PM Central Time. Record requests for emergency care only can be directed to [phone] at any time.[facility] Encounters Date Type Department Care Team Description 12/17/2023 Clinical Communication Division of Hematology in [place], [place] [address] [place] [phone] Rocio Woo R.N. Results 12/11/2023 11:27 AM CDT - 12/11/2023 11:59 PM CDT Hospital Encounter Department of Laboratory Medicine and Pathology, [facility] in [place], [place] [address] [place] [phone] aDrron Steele M.B.B.S. 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 12/06/2015 Active ketoconazole (NIZORAL) 2 % cream Apply 1 application topically daily as needed for rash (facial). Active sildenafiL (VIAGRA) 50 mg tablet Take 50 mg by mouth as needed for erectile dysfunction. 09/17/2013 Active triamcinolone (KENALOG) 0.025 % cream Apply 1 application topically daily as needed for rash (facial). Active triamterene-hydr oCHLOROthiazide (DYAZIDE) 37.5-25 mg per capsule Take 1 capsule by mouth daily. Active mupirocin (BACTROBAN) 2 % ointment Apply 1 application topically daily as needed (rash (facial)). Active iron,carbonyl-vi tamin C (VITRON-C) 65 mg iron- [address] tablet Take 65 mg of iron by mouth daily. Do not crush or chew. Active amLODIPine (NORVASC) 5 mg tablet 09/28/2022 Active esomeprazole (NexIUM) [address] capsule Take 1 capsule (40 mg total) by mouth 2 (two) times a day before breakfast and dinner. 60 capsule 11 07/04/2023 Active azithromycin (Zithromax) 250 mg tablet Active predniSONE (Deltasone) 20 mg tablet 09/17/2013 Active Active Problems Problem Noted Date Diagnosed Date Fatigue 12/11/2023 Neuropathy Peripheral 04/25/2022 Hernia Hiatal 08/03/2021 Leukemia Lymphocytic Not Having Achieved Remissi on 03/25/2018 Chronic Obstructive Pulmonary Disease Mild 03/25 Gastroesophageal Reflux Disease Without Esophagi tis 07/25/2017 Obstruction Esophagus 07/23/2017 Dysphagia 06/26/2017 Resolved Problems Problem Noted Date Diagnosed Date Resolved Date Anemia B12 Deficiency 12/11/20232023 Immunizations Name Administration Dates Next Due H1N1 Inj 04/19/2009 HZV (ZOSTAVAX) 06/08/2008 Influenza Split 04/29/2007 Influenza high dose QV(65 ye ars or older) (PF) 03/02/2021 Influenza, Seasonal, Injectable 03/14/2011,03/18 Influenza, Unspecified 04/29/2007 PCV13 08/13/2014 PPSV23 05/09/2010 RZV (SHINGRIX) 02/12/2019,12/02/2018 SARS-COV-2 (COVID-19) - PFIZ ER (Discontinued)(12 years or older) 02/18/2021 Td Preservative Free (TENIVAC, DECAVAC) 05/08/20 12,06/08/2008,09/10/2007 Tdap 02/26/2022,05/08/2012 influenza trivalent vaccine (6 months and older)(PF) 05/08/2012 influenza vaccine QV(FLUBLOK ) (18 years or older) (PF) 03/30/2019 influenza vaccine quad (FLUZ ONE/FLUARIX) (6 months and older)(PF) 03/23/2014,03/24/2013 Social History Tobacco Use Types Packs/Day Years Used Date Smoking Tobacco: Never Smokeless Tobacco: Never Alcohol Use Standard Drinks/Week Comments Never 0 (1 standard drink = 0.6 oz pur e alcohol) [facility] Utilities Answer Date Recorded In the past 12 months has e [employer], gas, oil, or water [employer] threatened to shut off services in your [...] often do you attend chur ch or adventist services? Never 04/21/2022 Do you belong to any clubs o r organizations such as religious groups, unions, fraternal or athletic groups, or [...] and heating? Not hard at all 04/21/2022 [facility] Occup[facility] ional Health - Occupational Stress [...] your living situation today? I have a [facility] place to live 06/17/2023 Education Answer Date Recorded What is the highest level of school you have completed or the highest degree you have received? Doctorate 02/22/2021 Sex and Gender Information Value Date Recorded Sex Assigned at Male 02/22/2021 5:30 AM CDT Gender Identity Male 02/22/2021 5:30 AM CDT Sexual Orientation Straight 02/22/2021 5: 30 AM CDT Last Filed Vital Signs Vital Sign Reading Time Taken Comments Blood Pressure 144/72 12/11/2023 2:40 PM CDT Pulse 54 12/11/2023 2:40 PM CDT Temperature 35.9 ??C (96.6 ??F) 12/11/2023 2:40 PM CD T Respiratory Rate 15 06/19/2023 2:00 PM LUCERNE FARMER Oxygen Saturation 95% 06/19/2023 2:00 PM LUCERNE FARMER Inhaled Oxygen Concentration - - Weight 104 kg (228 lb 9.9 oz) 12/11/2023 2:40 PM CDT Height 181.9 cm (5' 11.61) 12/11/2023 2:40 PM C DT Body Mass Index 31.34 12/11/2023 2:40 PM CDT Plan of Treatment Not on file Medical Devices Implanted Type Area Stretcher Drier Operator Device Identifier Shelf Expiration Date Model / Serial / Lot Mesh Or Patch Mesh or Patch Abdomen Procedures Procedure Name Priority Date/Time Associated Diagnosis Comments SPSMA RESULT Routine 12/11/2023 11:39 AM CDT FOLATE, S Routine 12/11/2023 11:39 AM CDT 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) VITAMIN B12 ASSAY, S Routine 12/11/2023 11:39 AM CDT 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) IMMUNOGLOBULIN G (IGG), S Routine 12/11/2023 11:39 AM CDT 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) RETICULOCYTES, B Routine 12/11/2023 11:3 9 AM CDT 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) LACTATE DEHYDROGENASE (LD), S Routine 12/11/2023 11:39 AM CDT 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) CREATININE WITH EGFR, S/P Routine 12/11/2023 11:39 AM CDT 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) CBC WITH DIFFERENTIAL, B Routine 024 11:39 AM CDT 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) BILIRUBIN, TOT, S/P Routine 12/11/2023 1 1:39 AM CDT 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) ASPARTATE AMINOTRANSFERASE (AST), S/P Routine 12/11/2023 11:39 AM CDT 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) ALKALINE PHOSPHATASE, S/P Routine 12/11/2023 11:39 AM CDT 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) HAPTOGLOBIN, S Routine 12/11/2023 11:36 AM CDT 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) Anemia ERYTHROPOIETIN (EPO), S Routine 12/11/19 11:36 AM CDT FERRITIN, S Routine 12/11/2023 11:36 AM CDT 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) from Last 3 Months Results * (ABNORMAL) Morphology Eval (special smear) (12/11/2023 11:39 AM CDT) Neutrophilic Segs and Bands 7(L) 50 - 75 % 12/11/2023 2:14 PM CDT [facility] Lymphocytes 90(H) 18 - 42 % 12/11/2023 2:14 PM CDT [facility] Monocytes 3 2 - 11 % 12/11/2023 2:14 PM CDT [facility] Fragile Cells Marked 12/11/2023 2:14 PM CDT [facility] Manual Absolute Neutrophil Count 2.54 1.56 - 6.45 x10(9)/L 12/11/2023 2:14 PM CDT [facility] Comment: ----ADDITIONAL INFORMATION---- The manual absolute neutrophil count is derived from a manual differential count and therefore is not exactly comparable to the automated absolute neutrophil count. 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 Reviewed by: Eugenie 12/11/2023 2:14 PM CDT [facility] Blood 12/11/2023 11:3 9 AM CDT 12/11/2023 12:11 PM CDT Darron Norton LAB BLOOD ADD-O N [facility] [address] [place] [address], [facility] [address] [place] [address] * Reticulocytes (12/11/2023 11:39 AM CDT) Reticulocytes, B 1.48 0.60 - 2.71 % 12/11/2023 12:41 PM CDT DTL Absolute Reticulocyte 64.8 30.4 - 110.9 x10(9)/L 12/11/2023 12:41 PM CDT DTL Blood (Blood, Venous) 12/11/2023 11:39 AM CDT 12/11/2023 12:11 PM CDT Darron Norton LAB BLOOD ADD-O N Performing Organization Address City/[facility]/ZIP Co de Phone Number [facility] [address] [place] [address], [facility] [address] [place] [address] * (ABNORMAL) CBC with Differential, Blood (12/11/2023 11:39 AM CDT) [facility] [place] [facility] Hemoglobin 12.8(L) 13.2 - 16.6 g/dL 12/11/2023 12:41 PM CDT DTL Hematocrit 40.6 38.3 - 48.6 % 12/11/2023 12:41 PM CDT DTL Erythrocytes 4.38 4.35 - 5.65 x10(12)/L 12/11/2023 12:41 PM CDT DTL MCV 92.7 78.2 - 97.9 fL 12/11/2023 12:41 PM CDT DTL RBC Distrib Width 14.3 11.8 - 14.5 % 12/11/2023 12:41 PM CDT DTL Platelet Count 117(L) 135 - 317 x10(9)/L 12/11/2023 12:41 PM CDT DTL Leukocytes 36.3(H) 3.4 - 9.6 x10(9)/L 12/11/2023 2:14 PM CDT DTL Comment:Results confirmed by smear. Neutrophils See Comment 1.56 - 6.45 x10(9)/L 12/11/2023 2:14 PM CDT [facility] Comment:Auto-diff results no t valid. See manual differential. Blood (Blood, Venous) 12/11/2023 11:39 AM CDT 12/11/2023 12:11 PM CDT Darron Norton LAB BLOOD ADD-O N [facility] [address] [place] [address], [facility] DTL [facility] [address] [place] [address] [facility] [address] [place] [address] * AST (Aspartate Aminotransferase) (12/11/2023 11:39 AM CDT) Aspartate Aminotransferase (AST), S 22 8 - 48 U/L 12/11/2023 12:50 PM CDT DTL Blood (Blood, Venous) 12/11/2023 11:39 AM CDT 12/11/2023 12:26 PM CDT Darron CelayaSAshwini LAB BLOOD ADD-O N [facility] [address] [place] [address] * Alkaline Phosphatase (12/11/2023 11:39 AM CDT) Alkaline Phosphatase, S 60 40 - 129 U/L 12/11/2023 12:50 PM CDT DTL Blood (Blood, Venous) 12/11/2023 11:39 AM CDT 12/11/2023 12:26 PM CDT Darron Norton LAB BLOOD ADD-O N [facility] [address] 200 [place] [address] * LD (Lactate Dehydrogenase) (12/11/2023 11:39 AM CDT) Lactate Dehydrogenase (LD), S 187 122 - 222 U/L 12/11/2023 3:10 PM CDT DTL Blood (Blood, Venous) 12/11/2023 11:39 AM CDT 12/11/2023 12:26 PM CDT Darron CelayaSAshwini LAB BLOOD NON A DD-ON Performing Organization Address City/[facility]/ZIP Co de Phone Number [facility] [address] [place] [address], [facility] [address] [place] [address] * Immunoglobulin G (IgG) (12/11/2023 11:39 AM CDT) Pathologist [facility] Immunoglobulin G (IgG), S 867 767 - 1590 mg/dL 12/11/2023 5:32 PM CDT [facility] Blood (Blood, Venous) 12/11/2023 11:39 AM CDT 12/11/2023 3:57 PM CDT Darron CelayaSAshwini LAB BLOOD ADD-O N Performing Organization Address City/[facility]/ZIP Co de Phone Number [facility] [address] [place] [address] [facility] [address] [place] [address] * Folate (12/11/2023 11:39 AM CDT) [facility] Folate, S >20.0 >=4.0 mcg/L 12/11/2023 1: 08 PM CDT [facility] Blood (Blood, Venous) 12/11/2023 11:39 AM CDT 12/11/2023 12:26 PM CDT Darron CelayaSAshwini LAB BLOOD ADD-O N Performing Organization Address City/[facility]/ZIP Co de Phone Number [facility] [address] [place] [address], [facility] 200 [place] [address] * (ABNORMAL) Vitamin B12 Assay (12/11/2023 11:39 AM CDT) [facility] [place] [facility] Vitamin B12 Assay, S 1009(H) 180 - 914 ng/L 12/11/2023 1:10 PM CDT DT Comment: ----ADDITIONAL INFORMATION---- In patients being evaluated for vitamin B12 deficiency who have intrinsic factor blocking antibodies (IFBA), false elevations of B12 may occur due to IFBA interference thus potentially obscuring a physiological deficiency of B12. If observed B12 concentrations are discordant with clinical presentation, measurement of methylmalonic acid (MMA) should be considered. Blood (Blood, Venous) 12/11/2023 11:39 AM CDT 12/11/2023 12:26 PM CDT Darron CelayaS. LAB BLOOD ADD-O N Performing Organization Address [facility] Co de Phone Number [id number] [place] [address] * (ABNORMAL) Creatinine with Estimated GFR (12/11/2023 11:39 AM CDT) Creatinine 1.41(H) 0.74 - 1.35 mg/dL 12/11/2023 12:50 PM CDT DTL Estimated GFR (eGFR) 50(L) >=60 mL/min/BSA 12/11/2023 12:50 PM CDT DTL Comment: Estimated GFR calculated using the 2020 CKD_EPI creatinine equation. Blood (Blood, Venous) 12/11/2023 11:39 AM CDT 12/11/2023 12:26 PM CDT Darron CelayaS. LAB BLOOD ADD-O N Performing Organization Address [facility] Co de Phone Number [facility] [address] [place] [address], [address] [address] * Bilirubin, Total (12/11/2023 11:39 AM CDT) Bilirubin, Total, S 0.9 0.0 - 1.2 mg/dL 12/11/2023 12:50 PM CDT DTL Blood (Blood, Venous) 12/11/2023 11:39 AM CDT 12/11/2023 12:26 PM CDT Darron Norton LAB BLOOD ADD-O N [facility] [address] [place] [address], [facility] [address] [place] [address] * Erythropoietin (EPO) (12/11/2023 11:36 AM CDT) Pathologist [facility] Erythropoietin (EPO), S 11.0 2.6 - 18.5 mIU/mL 12/11/2023 8:03 PM CDT [facility] Blood 12/11/2023 11:3 6 AM CDT 12/11/2023 6:00 PM CDT Vonnie Pickett P.A.-C. MAshwiniSAshwini LAB BLOOD ADD-ON [facility] [address] [place] [address] [facility] [address] [place] [address] * Haptoglobin (12/11/2023 11:36 AM CDT) [facility] Haptoglobin, S 151 30 - 200 mg/dL 12/12/2023 5:59 PM CDT [facility] Blood (Blood, Venous) 12/11/2023 11:36 AM CDT 12/12/2023 5:29 PM CDT Vonnie Pickett P.A.-C. MAshwiniSAshwini LAB BLOOD ADD-ON [facility] [address] [place] [address] [facility] [address] [place] [address] * Ferritin (12/11/2023 11:36 AM CDT) Ferritin, S 88 31 - 409 mcg/L 12/11/2023 5:27 PM CDT DTL Blood (Blood, Venous) 12/11/2023 11:36 AM CDT 12/11/2023 3:26 PM CDT Vonnie B Piyush Smith MAshwiniS. LAB BLOOD ADD-ON [facility] [address] [place] [address], [facility] DTL [facility] [address] [place] [address] from Last 3 Months Advance Directives For more information, please contact: [phone] Documents on File Type Date Recorded Patient Pets Salesperson Expl anation Advance Directives 08/03/2021 6:25 AM Josefina Mcnair HCPOA/ADVOCATE/AGENT/R EPRESENTATIVE/SURROGAT E * Full Code (Latest Code Status on File) Date Activated Date Inactivated Comments 08/03/2021 2:45 PM 08/04/2021 2:01 PM Question Answer Comments Full Code: Not Discussed Due to: Patient not available Healthcare Agents on File Name Relationship Healthcare Agent Uzair Willams Spouse Health Care Agent Bri Mcnair Child First Alternate Health Care Agent Care Teams Fire Department Marine Engineer Relationship Specialty Start Date End Date Elsewhere, Pcp PCP - General Internal Medicine 08/03/21
--- OUTSIDE RECORDS SUMMARY | 2024-03-06 11:24 | XMS_ITS ---
Author Organization [facility] Address [address] [place] [address] Care Team Providers Care Elevator Operator Freight Name Role Phone Elsewhere, Pcp Primary Care Provider Unavailabl e Active Problems Problem Noted Date Diagnosed Date Fatigue 12/11/2023 Neuropathy Peripheral 04/25/2022 Hernia Hiatal 08/03/2021 Leukemia Lymphocytic Not Having Achieved Remissi on 03/25/2018 Chronic Obstructive Pulmonary Disease Mild 03/25 Gastroesophageal Reflux Disease Without Esophagi tis 07/25/2017 Obstruction Esophagus 07/23/2017 Dysphagia 06/26/2017 Current Oncology Plans No current plan information found. Past Plans No past plan information found. Radiation Treatments * No radiation treatments are documented for this patient in [facility]. Treatments may have been administered in another system. Lifetime Dose Tracking * Chemical Lifetime Dose Automatic Entry Manual Entr y Radiation 138.5 mGy 138.5 mGy 0 mGy Fluoro Time 7.4 minutes 7.4 minutes 0 minutes Resolved Problems Problem Noted Date Diagnosed Date Resolved Date Anemia B12 Deficiency 12/11/20232023
--- OUTSIDE RECORDS SUMMARY | 2024-03-06 11:24 | XMS_ITS | Clinical Summary ---
Author Organization [facility] Address [address] [place] [address] Care Team Providers Care Extractor Operator Solvent Process Name Role Phone Elsewhere, Pcp Primary Care Provider Unavailabl e Source Comments Patient records contain information from all sites at [facility]. For routine questions regarding patient records, call [phone] during business hours, M-F 8:00 AM - 5:00 PM Central Time. Record requests for emergency care only can be directed to [phone] at any time.[facility] Allergies Active Allergy Reactions Criticality Noted Date Comments Antigo Other (see comments) High Other reaction(s): Eye swelling, Facial swelling Antigo Oil Other (see comments) High 12/10/2022 Medications [...] Date Resolved Date Anemia B12 Deficiency 12/11/20232023 Encounters Date Type Department Care Team Description 12/17/2023 Clinical Communication Division of Hematology in [address] [phone] Rocio Woo R.N. Results 12/11/2023 3:00 PM CDT Office Visit Division of Hematology in [address] [phone] Vonnie Pickett P.A.-C., M.S. 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) Discharge Disposition: Home or Self Care 12/07/2023 9:15 AM CDT Clinical Communication Virtual Review in [place], [place] [address] [place] [address] Pre-visit Intake from Last 3 Months Immunizations Name Administration Dates Next Due H1N1 [...] (FLUZ ONE/FLUARIX) (6 months and older)(PF) 03/23/2014,03/24/2013 Family History Medical History Relation Name Comments Skin cancer Father Merrill Mcnair Dementia Maternal Grandfather Bandar Kolton Hypertension Maternal Grandfather Bandar Kolton Obesity Maternal Grandfather Bandar Kolton Anxiety disorder Mother Shraddha Mcnair Depression Mother Shraddha Mcnair Migraines Mother Shraddha Mcnair Stroke Mother Shraddha Mcnair Relation Name Status Comments Father Merrill Mcnair Maternal Grandfather Bandar Hi Mother Shraddha Mcnair Social History Tobacco Use Types Packs/Day Years Used Date Smoking Tobacco: Never Smokeless Tobacco: Never Alcohol Use Standard Drinks/Week Comments Never 0 (1 standard drink = 0.6 oz pur e alcohol) [facility] Utilities Answer Date Recorded In the past 12 months has e [employer], gas, oil, or water [employer] threatened to shut off services in your [...] friends, or neighbors? Twice a week 04/21/20 How often do you get togethe r with friends or relatives? Once a week 04/21/2022 How often do you attend chur ch or adventist services? Never 04/21/2022 Do you belong to any clubs o r organizations such as mu-ism groups, unions, fraternal or athletic groups, or [...] and heating? Not hard at all 04/21/2022 [facility] Occupat ional Health - Occupational Stress [...] your living situation today? [facility] 06/17/2023 Education Answer Date [...] T Respiratory Rate 15 06/19/2023 2:00 PM GRAPHIC ILLUSTRATOR Oxygen Saturation 95% 06/19/2023 2:00 PM GRAPHIC ILLUSTRATOR Inhaled Oxygen Concentration - - Weight 104 kg (228 lb 9.9 oz) 12/11/2023 2:40 PM CDT Height 181.9 cm (5' 11.61) 12/11/2023 2:40 PM C DT Body Mass Index 31.34 12/11/2023 2:40 PM CDT Plan of Treatment Health Maintenance Due Date Last Done Comments Depression Screening (Annual PHQ-2) 06/18/2023 COVID-19 Vaccine ( season) 2024 05/22/2023, 10/07/2022, 03/02/2022, Additional history exists Office Visit for Blood Pressure Check / Re-check 03/12/2024 12/11/2023 Influenza Vaccine (#1) 2024 , 04/03/2022, 03/02/2021, Additional history exists DTaP,Tdap,and Td Vaccines (4 - Td or Tdap) 02/27/2032 02/26/2022, 05/08/2012, 05/08/2012, Additional history exists Pneumococcal vaccine (65+ years) Completed 08/13/2014, 05/09/2010 Zoster Vaccines Completed 02/12/2019, 11/16, 06/08/2008 Fall Risk Screen (Annual) Completed 06/19/2023 HPV Vaccines Aged Out No longer eligi ble based on patient's age to complete this topic Medical Devices Implanted Type Area Video Game Maker Device Identifier Shelf Expiration Date Model / [...] (HCC) Anemia ERYTHROPOIETIN (EPO), S Routine 12/11/19 24 11:36 AM CDT FERRITIN, S Routine 12/11/2023 [...] count. 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 Reviewed by: Eugenie 12/11/2023 2:14 PM CDT [facility] Blood 12/11/2023 11:3 9 AM CDT 12/11/2023 12:11 PM CDT Darron CelayaSAshwini LAB BLOOD ADD-O N Performing Organization Address City/[facility]/ZIP Co de Phone Number [facility] [address] [place], [place] [id number] [place] [address] 200 [place] [address] * Reticulocytes (12/11/2023 11:39 AM CDT) Pathologist [facility] Reticulocytes, B 1.48 0.60 - 2.71 % 12/11/2023 12:41 PM CDT DTL Absolute Reticulocyte 64.8 30.4 - 110.9 x10(9)/L 12/11/2023 12:41 PM CDT DTL Blood (Blood, Venous) 12/11/2023 11:39 AM CDT 12/11/2023 12:11 PM CDT Darron CelayaS. LAB BLOOD ADD-O N Performing Organization Address [facility]/ZIP Co de Phone Number [facility] [address] [place], [place] [address] [address] [place] [address] * (ABNORMAL) CBC with Differential, Blood (12/11/2023 11:39 AM CDT) Hemoglobin 12.8(L) 13.2 - 16.6 g/dL 12/11/2023 [...] - 6.45 x10(9)/L 12/11/2023 2:14 PM CDT [facility] Comment:Auto-diff results no t valid. See manual differential. Blood (Blood, Venous) 12/11/2023 11:39 AM CDT 12/11/2023 12:11 PM CDT Darron CelayaS. LAB BLOOD ADD-O N [facility] [address] [place] [address], [facility] DTL [facility] [address] [place] [address] * AST (Aspartate Aminotransferase) (12/11/2023 11:39 AM CDT) Aspartate Aminotransferase (AST), S 22 8 - 48 U/L 12/11/2023 12:50 PM CDT DTL Blood (Blood, Venous) 12/11/2023 11:39 AM CDT 12/11/2023 12:26 PM CDT Darron CelayaS. LAB BLOOD ADD-O N [facility] [address] [place], [place] [phone] [place] [address] 200 [place] [address] * Alkaline Phosphatase (12/11/2023 11:39 AM CDT) Alkaline Phosphatase, S 60 40 - 129 U/L 12/11/2023 12:50 PM CDT DTL Blood (Blood, Venous) 12/11/2023 11:39 AM CDT 12/11/2023 12:26 PM CDT Darron CelayaSAshwini LAB BLOOD ADD-O N [facility] 200 [place] [address] * LD (Lactate Dehydrogenase) (12/11/2023 11:39 AM CDT) Pathologist [facility] Lactate Dehydrogenase (LD), S 187 122 - 222 U/L 12/11/2023 3:10 PM CDT DT Blood (Blood, Venous) 12/11/2023 11:39 AM CDT 12/11/2023 12:26 PM CDT Darron GarayB.SAshwini LAB BLOOD NON A DD-ON [facility] [address] [place], [place] [phone] [place] [address] 200 [place] [address] * Immunoglobulin G (IgG) (12/11/2023 11:39 AM CDT) Immunoglobulin G (IgG), S 867 767 - 1590 mg/dL 12/11/2023 5:32 PM CDT [facility] Blood (Blood, Venous) 12/11/2023 11:39 AM CDT 12/11/2023 3:57 PM CDT Darron Norton LAB BLOOD ADD-O N [facility] [address] [place] [address] [facility] [address] [place] [address] * Folate (12/11/2023 11:39 AM CDT) Pathologist [facility] Folate, S >20.0 >=4.0 mcg/L 12/11/2023 1: 08 PM CDT DTL Blood (Blood, Venous) 12/11/2023 11:39 AM CDT 12/11/2023 12:26 PM CDT Darron Norton LAB BLOOD ADD-O N Performing Organization Address [facility] Co de Phone Number [facility] [address] [place] [address], [facility] 200 [place] [address] * (ABNORMAL) Vitamin B12 Assay (12/11/2023 11:39 AM CDT) [facility] Vitamin B12 Assay, S 1009(H) 180 - [...] LAB BLOOD ADD-O N Performing Organization Address City/[facility]/ZIP Co de Phone Number [facility] [address] [place] [address] * (ABNORMAL) Creatinine with Estimated GFR (12/11/2023 11:39 AM CDT) Creatinine 1.41(H) 0.74 - 1.35 mg/dL 12/11/2023 12:50 PM CDT DTL Estimated GFR (eGFR) 50(L) >=60 mL/min/BSA 12/11/2023 12:50 PM CDT DTL Comment: Estimated GFR calculated using the 2020 CKD_EPI creatinine equation. Blood (Blood, Venous) 12/11/2023 11:39 AM CDT 12/11/2023 12:26 PM CDT Darron CelayaS. LAB BLOOD ADD-O N [facility] [address] [place], [place] [phone] [place] [address] 200 [place] [address] * Bilirubin, Total (12/11/2023 11:39 AM CDT) Bilirubin, Total, S 0.9 0.0 - 1.2 mg/dL 12/11/2023 12:50 PM CDT DT Blood (Blood, Venous) 12/11/2023 11:39 AM CDT 12/11/2023 12:26 PM CDT Darron CelayaS. LAB BLOOD ADD-O N [facility] [address] [place], [place] [id number] [place] [address] * Erythropoietin (EPO) (12/11/2023 11:36 AM CDT) Erythropoietin (EPO), S 11.0 2.6 - 18.5 mIU/mL 12/11/2023 8:03 PM CDT [facility] Blood 12/11/2023 11:3 6 AM CDT 12/11/2023 6:00 PM CDT Vonnie Pickett P.A.-C., MAshwiniS. LAB BLOOD ADD-ON [facility] [address] [place] [address] [facility] [address] [place] [address] * Haptoglobin (12/11/2023 11:36 AM CDT) Haptoglobin, S 151 30 - 200 mg/dL 12/12/2023 5:59 PM CDT [facility] Blood (Blood, Venous) 12/11/2023 11:36 AM CDT 12/12/2023 5:29 PM CDT Vonnie Pickett P.A.-C., MAshwiniS. LAB BLOOD ADD-ON [facility] [address] [place] [address] [facility] [address] [place] [address] * Ferritin (12/11/2023 11:36 AM CDT) Ferritin, S 88 31 - 409 mcg/L 12/11/2023 5:27 PM CDT DT Blood (Blood, Venous) 12/11/2023 11:36 AM CDT 12/11/2023 3:26 PM CDT Vonnie Pickett P.A.-C. MAshwiniS. LAB BLOOD ADD-ON [facility] [address] [place] [address], [facility] DTL [facility] [address] [place] [address] from Last 3 Months Advance Directives For more information, please contact: [phone] Documents on File Type Date Recorded Patient Parts Administrator Expl anation Advance Directives 08/03/2021 6:25 AM Josefina Mcnair HCPOA/ADVOCATE/AGENT/R EPRESENTATIVE/SURROGAT E * Full Code (Latest Code Status on File) Date Activated Date Inactivated Comments 08/03/2021 2:45 PM 08/04/2021 2:01 PM Question Answer Comments Full Code: Not Discussed Due to: Patient not available Healthcare Agents on File Name Relationship Healthcare Agent [facility] p Communication Josefina Willams Spouse Health Care Agent Bri Mcnair Child First Alternate Health Care Agent Care Teams Extractor Operator Solvent Process Relationship Specialty Start Date End Date Elsewhere, Pcp PCP - General Internal Medicine 08/03/21
--- OUTSIDE RECORDS SUMMARY | 2024-03-06 11:24 | XMS_ITS ---
Author Organization [facility] Address [address] [place] [address] Care Team Providers Care Clinical Auditor Name Role Phone Unavailable Unavailable Unavailable Surgery Details Not on file Complications Check Surgery Details section. Procedure Estimated Blood Loss Check Surgery Details section. Procedure Findings Check Surgery Details section. Procedure Specimens Taken Check Surgery Details section.
--- OUTSIDE RECORDS SUMMARY | 2024-03-06 11:24 | XMS_ITS | Clinical Summary ---
Author Organization [facility] Address [place], [place] [address] Care Team Providers Care Registered Nurse Practitioner Name Role Phone Rosa Allison MD Primary Care Provider [phone] Allergies Active Allergy Reactions Criticality Noted Date Comments Ibuprofen GI Upset 12/31/2006 increase in acid reflux Medications Medication Sig Dispensed Refills Start Date End Date Status PAROXETINE 40 MG TAB take 1/2 tab po daily 15 6 02/08/2007 Active PRILOSEC OTC 20 MG TAB take 1 tablet daily 28 2 04/25/2007 Active predniSONE (DELTASONE) 20 mg tablet Take 1 tablet by mouth once daily with a meal. 0 09/17/2013 Active sildenafil citrate (VIAGRA) 50 mg tablet Take 1 tablet by mouth once daily if needed for Erectile Dysfunction. Take 30min to 4 hours before sexual activity. Max 100mg/24hr 0 09/17/2013 Active multivitamin (MVI) tablet Take 1 tablet by mouth once daily. 0 09/17/2013 Active triamterene-hydrochlo rothiazide, 37.5-25 mg, (DYAZIDE) 37.5-25 mg capsule Take 1 capsule by mouth every morning. 0 09/17/2013 Active EPINEPHrine (EPIPEN) 0.3 mg/0.3 mL injectionIndications: Adverse food reaction Use as directed 2 Each 11 12/06/2015 Active Immunizations Name Administration Dates Next Due Td (Age >=7 Years) 12/26/1996 Social History Tobacco Use Types Packs/Day Years Used Date Smoking Tobacco: Never Tobacco Cessation:Counseling Given: Yes Comments:exposed to 2nd hand smoke x 10 years. Alcohol Use Standard Drinks/Week Comments Yes 0 (1 standard drink = 0.6 oz pur e alcohol) Sex and Gender Information Value Date Recorded Sex Assigned at Not on file Gender Identity Not on file Sexual Orientation Not on file Obstetrics History Last Filed Vital Signs Vital Sign Reading Time Taken Comments Blood Pressure 120/81 09/17/2013 7:00 AM CDT Pulse 69 09/17/2013 7:00 AM CDT Temperature 36.7 ??C (98 ??F) 09/17/2013 7:00 AM CDT Respiratory Rate - - Oxygen Saturation - - Inhaled Oxygen Concentration - - Weight 101.3 kg (223 lb 4.8 oz) 09/17/2013 7:00 AM CDT Height 180.3 cm (5' 10.98) 09/17/2013 7:00 AM C DT Body Mass Index 31.16 09/17/2013 7:00 AM CDT Plan of Treatment Health Maintenance Due Date Last Done Comments Tdap 1952 Depression screening for age 12+ 1953 BMI (ht and wt on same day) for age 18+ 1959 Zoster (shingles) series for age 50+ (1 of 2) 1991 RSV vaccine for adults or pr egnancy (1 - 1-dose 60+ series) 2001 Medicare Wellness for age 65+ 2006 Pneumococcal series for age 65+ (1 of 1 - PCV) 2006 Tetanus booster 12/26/2006 12/26/1996 COVID-19 vaccine series ( season) 2024 02/18/2021, 08/24/2020, 08/03/2020 Influenza for age 65+ 02/17/2024 Care Teams Registered Nurse Practitioner Relationship Specialty Start Date End Date Rosa Allison MD [address] [place] [address] PCP - General Internal Medicine 09/17/13
--- OUTSIDE RECORDS SUMMARY | 2024-03-06 11:25 | XMS_ITS | Encounter Summary ---
Author Organization [facility] Address [address] [place] [address] Care Team Providers Care Artificial Fly Tier Name Role Phone Elsewhere, Pcp Primary Care Provider Unavailabl e Reason for Visit * Reason Onset Date Comments Pre-visit Intake 12/07/2023 Encounter Details Date Type Department Care Team (Latest Contact Info) Description 12/07/2023 9:15 AM CDT Clinical Communication Virtual Review in [place], [place] [address] [place] [address] Pre-visit Intake Social History Tobacco Use Types Packs/Day Years Used Date Smoking Tobacco: Never Smokeless Tobacco: Never Alcohol Use Standard Drinks/Week Comments Never 0 (1 standard drink = 0.6 oz pur e alcohol) [facility] Utilities Answer Date Recorded In the past 12 months has [facility] [employer], gas, oil, or water [employer] threatened to shut off services in your [...] often do you attend chur ch or rastafarian services? Never 04/21/2022 Do you belong to any clubs o r organizations such as sikh groups, unions, fraternal or athletic groups, or [...] and heating? Not hard at all 04/21/2022 [facility] of Occupat ional Health - Occupational Stress [...] your living situation today? [facility] 06/17/2023 Education Answer Date Recorded What is the highest level of school you have completed or the highest degree you have received? Doctorate 02/22/2021 Sex and Gender Information Value Date Recorded Sex Assigned at Male 02/22/2021 5:30 AM CDT Gender Identity Male 02/22/2021 5:30 AM CDT Sexual Orientation Straight 02/22/2021 5: 30 AM CDT documented as of this encounter Plan of Treatment Not on file documented as of this encounter Visit Diagnoses Not on filedocumented in this encounter Care Teams Artificial Fly Tier Relationship Specialty Start Date End Date Elsewhere, Pcp PCP - General Internal Medicine 08/03/21 documented as of this encounter
--- OUTSIDE RECORDS SUMMARY | 2024-03-06 11:25 | XMS_ITS | Encounter Summary ---
Author Organization [facility] Address [address] [place] [id number] Care Team Providers Care Seed Cleaning Manager Name Role Phone Elsewhere, Pcp Primary Care Provider Unavailabl e Reason for Referral * Outpatient (Routine) - Authorized Specialty Diagnoses / Procedures Referred By Talat alex Referred To Contact Hematology Oncology Vonnie Pickett P.A.-C., M.S. [address] [place] [phone] [facility] Referral ID Status Reason Start Date Expiration Date V isits Requested Visits Authorized [id number] Authorized 12/11/2023 06/11/2025 1 1 Scheduling Instructions Dianna Steele Reason for Visit * Outpatient (Routine) - Closed Specialty Diagnoses / Procedures Referred By Contnilda alex Referred To Contact Hematology Oncology Darron Steele M.B.B.S. [address] [place] [phone] [facility] Referral ID Status Reason Start Date Expiration Date Visits Re quested Visits Authorized [id number] Closed 11/21/2022 11/20/2025 1 1 Encounter Details Date Type Department Care Team (Late st Contact Info) Description 12/11/2023 3:00 PM CDT Office Visit Division of Hematology in [place], [place] [address] [place] [phone] Vonnie Pickett P.A.-C., M.S. [address] [place] [address] 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) (Primary Dx); Anemia; Fatigue Social History Tobacco Use Types Packs/Day Years Used Date Smoking Tobacco: Never Smokeless Tobacco: Never Alcohol Use Standard Drinks/Week Comments Never 0 (1 standard drink = 0.6 oz pur e alcohol) [facility] Utilities Answer Date Recorded In the past 12 months has e [employer], gas, oil, or water [employer] threatened to shut off services in your [...] often do you attend chur ch or presybeterian services? Never 04/21/2022 Do you belong to any clubs o r organizations such as buddhist groups, unions, fraternal or athletic groups, or [...] and heating? Not hard at all 04/21/2022 [facility] of Occupat ional [facility] - Occupational Stress Questionnaire Answer Date Recorded [...] Date Recorded Dental: Regular Dentist Yes 04/21/20 22 Employment Answer Date Recorded Employment status Retired 06/17/2023 Housing Stability Answer Date Recorded What is your living situation today? I have a [facility] place to live 06/17/2023 Education Answer Date Recorded What is the highest level of school you have completed or the highest degree you have received? Doctorate 02/22/2021 Sex and Gender Information Value Date Recorded Sex Assigned at Male 02/22/2021 5:30 AM CDT Gender Identity Male 02/22/2021 5:30 AM CDT Sexual Orientation Straight 02/22/2021 5: 30 AM CDT documented as of this encounter Last Filed Vital Signs Vital Sign Reading Time Taken Comments Blood Pressure 144/72 12/11/2023 2:40 PM CDT Pulse 54 12/11/2023 2:40 PM CDT Temperature 35.9 ??C (96.6 ??F) 12/11/2023 2:40 PM CD T Respiratory Rate - - Oxygen Saturation - - Inhaled Oxygen Concentration - - Weight 104 kg (228 lb 9.9 oz) 12/11/2023 2:40 PM CDT Height 181.9 cm (5' 11.61) 12/11/2023 2:40 PM C DT Body Mass Index 31.34 12/11/2023 2:40 PM CDT documented in this encounter Progress Notes * Vonnie Pickett P.A.-C., M.S. - 12/11/2023 3:00 PM CDT STAFF COUNCILMAN HANNAH CHIEF COMPLAINT/PURPOSE OF VISIT: CLL SUBJECTIVE HISTORY OF PRESENT ILLNESS: Mr. Mcnair is a 83 y.o. male with Chronic Lymphocytic Leukemia whose hematologic history is outlinedbelow: Oncology History Overview Note The patient's hematologic history can be summarized as follows: 1. He was originally diagnosed with chronic lymphocytic leukemia approximately 20 years ago. Unfortunately, I do not have the details of his initial diagnosis. The patient reports that this was diagnosed incidentally on a CBC that was done for unrelated reasons. Because he had early stage disease, nothing further was recommended. The patient was followed on a regular basis over the next many years, with no indications for therapy. 2. He was most recently seen by his primary care physician in November 2020 when a CBC was done which showed that the total WBC count was 41.2, with an absolute lymphocyte count of 37.6, hemoglobin was 14.7, and the platelet count was 113. The patient did not have any symptoms of fever, night sweats, lymph node enlargement, or other criteria for initiation of therapy. He was therefore advised to continue to follow on a regular basis. 3. February 2021: Patient was seen at [facility] in Hematology for the 1st time. 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 The patient did not meet indications for therapy, and therefore close observation was recommended. 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) 03/25/2018 Initial Diagnosis 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) INTERVAL HISTORY Mr. Mcnair returns today for follow-up accompanied by his . Overall he has done well over the past year. That being said, about 2 weeks ago, he experienced a recurrent episode of the wearies, with significant fatigue. He describes experiencing this intermittently about 20 years ago; he also describes episodes of anemia dating back to his childhood. He describes that several years ago during an episode of the wearies his hemoglobin was found to be as low as 8g/dL. No other associated symptoms (fevers, drenching night sweats, chest pain, etc.). he has not noticed any lymphadenopathy, fevers, infections, drenching night sweats, unintentional weight loss. OBJECTIVE VITAL SIGNS: BP 144/72 Pulse (!) 54 Temp (!) 35.9 ??C Ht 181.9 cm Wt 104 kg BMI 31.34 kg/m?? MEDICATIONS: Current Outpatient Medications: amLODIPine (NORVASC) 5 mg tablet, , Disp: , Rfl: azithromycin (Zithromax) 250 mg tablet, , Disp: , Rfl: EPINEPHrine 0.3 mg/0.3 mL injection syringe, Inject 0.3 mg intramuscularly as needed for anaphylaxis., Disp: , Rfl: esomeprazole (NexIUM) [address] capsule, Take 1 capsule (40 mg total) by mouth 2 (two) times a day before breakfast and dinner., Disp: 60 capsule, Rfl: 11 iron,carbonyl-vitamin C (VITRON-C) 65 mg iron- [address] tablet, Take 65 mg of iron by mouth daily.Do not crush or chew., Disp: , Rfl: ketoconazole (NIZORAL) 2 % cream, Apply 1 application topically daily as needed for rash (facial).,Disp: , Rfl: mupirocin (BACTROBAN) 2 % ointment, Apply 1 application topically daily as needed (rash (facial)).,Disp: , Rfl: predniSONE (Deltasone) 20 mg tablet, , Disp: , Rfl: sildenafiL (VIAGRA) 50 mg tablet, Take 50 mg by mouth as needed for erectile dysfunction., Disp: , Rfl: triamcinolone (KENALOG) 0.025 % cream, Apply 1 application topically daily as needed for rash (facial)., Disp: , Rfl: triamterene-hydroCHLOROthiazide (DYAZIDE) 37.5-25 mg per capsule, Take 1 capsule by mouth daily., Disp: , Rfl: IMMUNIZATIONS: Immunization History Administered Date(s) Administered H1N1 Inj 04/19/2009 HZV (ZOSTAVAX) 06/08/2008 Influenza (IM) Preservative Free 05/08/2012 Influenza Split 04/29/2007 Influenza high dose QV(65 years or older) (PF) 03/02/2021 Influenza, Seasonal, Injectable 03/18/2010, 03/14/2011 Influenza, Unspecified 04/29/2007 PCV13 08/13/2014 PPSV23 05/09/2010 RZV (SHINGRIX) 12/02/2018, 02/12/2019 SARS-COV-2 (COVID-19) - PFIZER (Discontinued)(12 years or older) 08/03/2020, 08/24/2020, 02/18/2021, 08/23/2021 SARS-COV-2 (COVID-19) - PFIZER [id number] (12 YEARS OR OLDER) 05/22/2023 SARS-COV-2 (COVID-19) - PFIZER BIVALENT TS(Discontinued)(12 YEARS OR OLDER) 03/02/2022, 10/07/2022 Td Preservative Free (TENIVAC, DECAVAC) 09/10/2007, 06/08/2008, 05/08/2012 Tdap 05/08/2012, 02/26/2022 influenza vaccine QV(FLUBLOK) (18 years or older) (PF) 03/30/2019 influenza vaccine quad (FLUZONE/FLUARIX) (6 months and older)(PF) 03/24/2013, 03/23/2014 PHYSICAL EXAM: General: pleasant, nontoxic appearing male, in no acute distress. Ambulates to and from exam table without difficulty. ECOG 0. Neuro: alert and oriented to person, place, and time; no focal deficits noted Eyes: anicteric, with extraocular movements intact Heart: regular rate and rhythm Lungs: clear to auscultation bilaterally, breathing comfortably on room air Abdomen: soft, nontender, without palpable hepatosplenomegaly Lymph: no preauricular, postauricular, anterior cervical, posterior cervical, supraclavicular, axillary, or inguinal lymphadenopathy Skin: no rashes, purpura visualized DIAGNOSTICS: Most recent laboratory values include: Lab Results Component Value Date WBC 36.3 (H) 12/11/2023 HGB 12.8 (L) 12/11/2023 HCT 40.6 12/11/2023 MCV 92.7 12/11/2023 PLT 117 (L) 12/11/2023 , Lab Results Component Value Date NA 141 08/02/2021 CL 105 08/02/2021 CREATININE 1.41 (H) 12/11/2023 EGFR 50 (L) 12/11/2023 BUN 19 08/02/2021 ANIONGAP 11 08/02/2021 GLUCOSE 106 08/02/2021 CALCIUM 9.0 08/02/2021 LDH 187 12/11/2023 Lab Results Component Value Date AST 22 12/11/2023 ALKPHOS 60 12/11/2023 BILITOT 0.9 12/11/2023 ASSESSMENT / PLAN #1 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) #2 Anemia #3 Fatigue Mr. Mcnair has a history of CLL dating back 20+ years. He describes what sounds like a cyclical history of anemia dating back to childhood of unclear origin. The anemia is mild, but will work up further with ferritin, haptoglobin, EPO given the elevated creatinine. No evidence of progressive CLL by labs or physical exam. Stable mild thrombocytopenia. We discussed general causes of anemia, though the history dating back to his childhood is a bit peculiar. He has never been given a diagnosis for this. He does have a recent history of B12 deficiency anemia but B12 is excellent. He also takes Vitron-C daily. Prior stress echos have been unremarkable. PLAN: Add on ferritin, haptoglobin, epo Follow-up results next week RTC in 6 months, or sooner if needed BILLING I personally spent a total of 35 minutes in both face to face and non face to face coordination of care as outlined above. documented in this encounter Plan of Treatment Scheduled Orders Name Type Priority Associated Diagnoses Orde r Schedule Alkaline Phosphatase Lab Routine 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) Anemia Expected: 06/11/2024, Expires: 03/12/2025 AST (Aspartate Aminotransferase) Lab Routine 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) Anemia Expected: 06/11/2024, Expires: 03/12/2025 Bilirubin, Total Lab Routine 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) Anemia Expected: 06/11/2024, Expires: 03/12/2025 CBC with Differential, Blood Lab Routine 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) Anemia Expected: 06/11/2024, Expires: 03/12/2025 Creatinine with Estimated GFR Lab Routine 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) Anemia Expected: 06/11/2024, Expires: 03/12/2025 LD (Lactate Dehydrogenase) Lab Routine 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) Anemia Expected: 06/11/2024, Expires: 03/12/2025 Reticulocytes Lab Routine 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) Anemia Expected: 06/11/2024, Expires: 03/12/2025 Immunoglobulin G (IgG) Lab Routine 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) Anemia Expected: 06/11/2024, Expires: 03/12/2025 Scheduled Referrals Name Type Priority Associated Diagnoses Order Schedule Hematology office visit (clinic) [facility]; CLL; General Outpatient Referral Routine Expected: 06/11/2024, Expires: 03/12/2025 documented as of this encounter Procedures Procedure Name Priority Date/Time Associated Diagnosis Comments ERYTHROPOIETIN (EPO), S Routine 12/11/2023 11:36 AM CDT HAPTOGLOBIN, S Routine 12/11/2023 11:36 AM CDT 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) Anemia FERRITIN, S Routine 12/11/2023 11:36 AM CDT 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) documented in this encounter Results * Haptoglobin (12/11/2023 11:36 AM CDT) Pathologist [facility] Haptoglobin, S 151 30 - 200 mg/dL 12/12/2023 5:59 PM CDT [facility] Blood (Blood, Venous) 12/11/2023 11:36 AM CDT 12/12/2023 5:29 PM CDT Vonnie Pickett P.A.-C., M.S. LAB BLOOD ADD-ON [facility] [address] [place] [address] [facility][note 3] [address] [place] [address] * Erythropoietin (EPO) (12/11/2023 11:36 AM CDT) [facility] Erythropoietin (EPO), S 11.0 2.6 - 18.5 mIU/mL 12/11/2023 8:03 PM CDT [facility] Blood 12/11/2023 11:3 6 AM CDT 12/11/2023 6:00 PM CDT Vonnie Pickett P.A.-C., M.S. LAB BLOOD ADD-ON [facility] [address] [place] [address] [facility][note 3] [address] [place] [address] * Ferritin (12/11/2023 11:36 AM CDT) [facility] Ferritin, S 88 31 - 409 mcg/L 12/11/2023 5:27 PM CDT DT Blood (Blood, Venous) 12/11/2023 11:36 AM CDT 12/11/2023 3:26 PM CDT Vonnie Pickett P.A.-C., M.S. LAB BLOOD ADD-ON [facility] [address] [place], [place] [address] DTL [facility] [address] [place] [address] documented in this encounter Visit Diagnoses Diagnosis 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)- Primary Anemia Fatigue documented in this encounter Care Teams Seed Cleaning Manager Relationship Specialty Start Date End Date Elsewhere, Pcp PCP - General Internal Medicine 08/03/21 documented as of this encounter
--- OUTSIDE RECORDS SUMMARY | 2024-03-06 11:25 | XMS_ITS | Encounter Summary ---
Author Organization [facility] Address [address] [place] [address] Care Team Providers Care Lathe Tender Name Role Phone Elsewhere, Pcp Primary Care Provider Unavailabl e Encounter Details Date Type Department Care Team (Latest Contact Info) Description 12/11/2023 11:27 AM CDT - 12/11/2023 11:59 PM CDT Hospital Encounter Department of Laboratory Medicine [facility] [place], [place] [address] [place] [address] Darron Steele M.B.B.S. [address] [place] [phone] 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) Discharge Disposition: Home or Self Care Social History Tobacco Use Types Packs/Day Years Used Date Smoking Tobacco: Never Smokeless Tobacco: Never Alcohol Use Standard Drinks/Week Comments Never 0 (1 standard drink = 0.6 oz pur e alcohol) [facility] Utilities Answer Date Recorded In the past 12 months has e electric, gas, oil, or water company threatened to shut off services in your [...] often do you attend chur ch or zoroastrianism services? Never 04/21/2022 Do you belong to any clubs o r organizations such as jehovah's witness groups, unions, fraternal or athletic groups, or [...] heating? Not hard at all 04/21/2022 [facility] of Occupat ional Health - Occupational Stress [...] your living situation today? I have a [facility] place to live 06/17/2023 Education Answer Date Recorded What is the highest level of school you have completed or the highest degree you have received? Doctorate 02/22/2021 Sex and Gender Information Value Date Recorded Sex Assigned at Male 02/22/2021 5:30 AM CDT Gender Identity Male 02/22/2021 5:30 AM CDT Sexual Orientation Straight 02/22/2021 5: 30 AM CDT documented as of this encounter Medications at Time of Discharge Medication Sig Dispensed Refills Start Date End Date amLODIPine (NORVASC) 5 mg tablet 09/28/2022 azithromycin (Zithromax) 250 mg tablet EPINEPHrine 0.3 mg/0.3 mL injection syringe Inject 0.3 mg intramuscularly as needed for anaphylaxis. 12/06/2015 esomeprazole (NexIUM) [address] capsule Take 1 capsule (40 mg total) by mouth 2 (two) times a day before breakfast and dinner. 60 capsule 11 07/04/2023 iron,carbonyl-vitami n C (VITRON-C) 65 mg iron- [address] tablet Take 65 mg of iron by mouth daily. Do not crush or chew. ketoconazole (NIZORAL) 2 % cream Apply 1 application topically daily as needed for rash (facial). mupirocin (BACTROBAN) 2 % ointment Apply 1 application topically daily as needed (rash (facial)). predniSONE (Deltasone) 20 mg tablet 09/17/2013 sildenafiL (VIAGRA) 50 mg tablet Take 50 mg by mouth as needed for erectile dysfunction. 09/17/2013 triamcinolone (KENALOG) 0.025 % cream Apply 1 application topically daily as needed for rash (facial). triamterene-hydroCHL OROthiazide (DYAZIDE) 37.5-25 mg per capsule Take 1 capsule by mouth daily. documented as of this encounter Plan of Treatment Not on file documented as of this encounter Procedures Procedure Name Priority Date/Time Associated Diagnosis Comments SPSMA RESULT Routine 12/11/2023 11:39 AM CDT RETICULOCYTES, B Routine 12/11/2023 11:3 9 AM [...] 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) FOLATE, S Routine 12/11/2023 11:39 AM CDT [...] (HCC) documented in this encounter Results * (ABNORMAL) Morphology Eval (special smear) [...] CDT Darron Norton LAB BLOOD ADD-O N [facility] [address] [place] [address], [facility] [address] [place] [address] * Folate (12/11/2023 11:39 AM CDT) Pathologist [facility] Folate, S >20.0 >=4.0 mcg/L 12/11/2023 1: 08 PM CDT [facility] Blood (Blood, Venous) 12/11/2023 11:39 AM CDT 12/11/2023 12:26 PM CDT Darron Norton LAB BLOOD ADD-O N Performing Organization Address [facility] de Phone Number [facility] [address] [place] [address], [facility] [address] [place] [address] * (ABNORMAL) Vitamin B12 Assay (12/11/2023 11:39 AM CDT) [facility] Vitamin B12 Assay, S 1009(H) 180 [...] LAB BLOOD ADD-O N Performing Organization Address [facility] Co de Phone Number [facility] [address] [place] [address], [facility] [address] [place] [address] * Immunoglobulin G (IgG) (12/11/2023 11:39 AM CDT) [facility] Immunoglobulin G (IgG), S 867 767 - 1590 mg/dL 12/11/2023 5:32 PM CDT [facility] Blood (Blood, Venous) 12/11/2023 11:39 AM CDT 12/11/2023 3:57 PM CDT Darron Norton LAB BLOOD ADD-O N [facility] [address] [place] [address] [facility] [address] [place] [address] * Reticulocytes (12/11/2023 11:39 AM CDT) Reticulocytes, B 1.48 0.60 - 2.71 % 12/11/2023 12:41 PM CDT DTL Absolute Reticulocyte 64.8 30.4 - 110.9 x10(9)/L 12/11/2023 12:41 PM CDT DTL Blood (Blood, Venous) 12/11/2023 11:39 AM CDT 12/11/2023 12:11 PM CDT Darron Norton LAB BLOOD ADD-O N Performing Organization Address City/[facility]/ZIP Co de Phone Number [facility] [address] [place] [address] * LD (Lactate Dehydrogenase) (12/11/2023 11:39 AM CDT) Lactate Dehydrogenase (LD), S 187 122 - 222 U/L 12/11/2023 3:10 PM CDT DTL Blood (Blood, Venous) 12/11/2023 11:39 AM CDT 12/11/2023 12:26 PM CDT Darron Norton LAB BLOOD NON A DD-ON [facility] [address] [place] [address], [facility] [address] [place] [address] * (ABNORMAL) Creatinine with Estimated GFR (12/11/2023 11:39 AM CDT) Creatinine 1.41(H) 0.74 - 1.35 mg/dL 12/11/2023 12:50 PM CDT DTL Estimated GFR (eGFR) 50(L) >=60 mL/min/BSA 12/11/2023 12:50 PM CDT DTL Comment: Estimated GFR calculated using the 2020 CKD_EPI creatinine equation. Blood (Blood, Venous) 12/11/2023 11:39 AM CDT 12/11/2023 12:26 PM CDT Darron Norton LAB BLOOD ADD-O N [facility] [address] [place] [address], [facility] [address] [address] * (ABNORMAL) CBC with Differential, Blood (12/11/2023 [...] 6.45 x10(9)/L 12/11/2023 2:14 PM CDT [facility] Comment:Auto-diff results no t valid. See manual differential. Blood (Blood, Venous) 12/11/2023 11:39 AM CDT 12/11/2023 12:11 PM CDT Darron Norton LAB BLOOD ADD-O N Performing Organization Address City/[facility]/ZIP Co de Phone Number [facility] 200 [place] [address], [facility] [address] [place], [place] [address] [place] [address] 200 [place] [address] * Bilirubin, Total (12/11/2023 11:39 AM CDT) Bilirubin, Total, S 0.9 0.0 - 1.2 mg/dL 12/11/2023 12:50 PM CDT DTL Blood (Blood, Venous) 12/11/2023 11:39 AM CDT 12/11/2023 12:26 PM CDT Darron CelayaSAshwini LAB BLOOD ADD-O N Performing Organization Address [facility] Co de Phone Number [facility] [address] [place] [address], [facility] [address] [place] [address] * AST (Aspartate Aminotransferase) (12/11/2023 11:39 AM CDT) Aspartate Aminotransferase (AST), S 22 8 - 48 U/L 12/11/2023 12:50 PM CDT DTL Blood (Blood, Venous) 12/11/2023 11:39 AM CDT 12/11/2023 12:26 PM CDT Darron CelayaSAshwini LAB BLOOD ADD-O N Performing Organization Address City/[facility] Co de Phone Number [facility] [address] [place], [place] [address] [address] [place] [address] * Alkaline Phosphatase (12/11/2023 11:39 AM CDT) Alkaline Phosphatase, S 60 40 - 129 U/L 12/11/2023 12:50 PM CDT DTL Blood (Blood, Venous) 12/11/2023 11:39 AM CDT 12/11/2023 12:26 PM CDT Darron Norton LAB BLOOD ADD-O N [facility] [address] [place], [place] [address] [place] [address] documented in this encounter Visit Diagnoses Diagnosis 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) documented in this encounter Care Teams Lathe Tender Relationship Specialty Start Date End Date Elsewhere, Pcp PCP - General Internal Medicine 08/03/21 documented as of this encounter
--- OUTSIDE RECORDS SUMMARY | 2024-03-06 11:25 | XMS_ITS | Encounter Summary ---
Author Organization [facility] Address [address] [place] [address] Care Team Providers Care Coffee Machine Technician Name Role Phone Elsewhere, Pcp Primary Care Provider Unavailabl e Reason for Referral * Outpatient (Routine) - Closed Specialty Diagnoses / Procedures Referred By Talat t Referred To Contact Urology Diagnoses Dysfunction Erectile Rosa Allison M.D. [address] [place] [address] [facility] Referral ID Status Reason Start Date Expiration Date Visits Re quested Visits Authorized [id number] Closed 08/01/2018 08/01/2019 1 1 NEERING TEST MECHANIC Encounter Details Date Type Department Care Team (Late st Contact Info) Description 08/01/2018 [facility] [address] [place] [address] Rosa Allison M.D. [address] [place] [address] Dysfunction Erectile (Primary Dx) Social History Tobacco Use Types Packs/Day Years Used Date Smoking Tobacco: Never Assessed Sex and Gender Information Value Date Recorded Sex Assigned at Male 02/22/2021 5:30 AM CDT Gender Identity Male 02/22/2021 5:30 AM CDT Sexual Orientation Straight 02/22/2021 5: 30 AM CDT documented as of this encounter Plan of Treatment Scheduled Referrals Name Type Priority Associated Diagnoses Orde r Schedule Urology Referral Outpatient Referral Routine Dysfunction Erectile Expected: 08/01/2018 (Approximate), Expires: 08/01/2021 documented as of this encounter Visit Diagnoses Diagnosis Dysfunction Erectile- Primary documented in this encounter Additional Health Concerns Infection Onset Date Last Indicated Resolved Time COVID19 Pending 06/08/2021 06/08/2021 06/08/2021 6 :11 PM ENGINEERING TEST MECHANIC COVID19 Pending 07/08/2021 07/08/2021 07/08/2021 2 :20 PM ENGINEERING TEST MECHANIC COVID19 Pending 08/02/2021 08/02/2021 08/02/2021 5 :27 PM ENGINEERING TEST MECHANIC documented as of this encounter Care Teams Coffee Machine Technician Relationship Specialty Start Date End Date Elsewhere, Pcp PCP - General Internal Medicine 08/03/21 documented as of this encounter
== END 2024-03-04 07:36 | disposition home or self-care (01) ==
LOC: NFLDREF 03-06 11:22
PROVIDERS: PCP Internal Medicine; Referring Provider Internal Medicine; Visit Provider Internal Medicine
DX: E53.8 Deficiency of other specified B group vitamins (principal); I10 Essential (primary) hypertension; Z12.5 Encounter for screening for malignant neoplasm of prostate
CPT/HCPCS: 80048; 82607; G0103

== ENCOUNTER 2024-09-24 08:11 | Outpatient (CLI) | payer MEDICARE, BC, SELFPAY | END 2024-09-24 08:12 | disposition home or self-care (01) | LOC: NFLDREF 09-29 16:19 | PROVIDERS: PCP Internal Medicine; Referring Provider Internal Medicine; Visit Provider Internal Medicine | DX: R19.7 Diarrhea, unspecified (principal) | CPT/HCPCS: 80053 ==

== ENCOUNTER 2025-03-24 08:29 | Outpatient (CLI) | payer MEDICARE, BC, SELFPAY | END 2025-03-24 08:30 | disposition home or self-care (01) | LOC: NFLDREF 03-26 15:50 | PROVIDERS: PCP Internal Medicine; Referring Provider Internal Medicine; Visit Provider Internal Medicine | DX: E53.8 Deficiency of other specified B group vitamins (principal); I10 Essential (primary) hypertension; Z85.46 Personal history of malignant neoplasm of prostate; Z12.5 Encounter for screening for malignant neoplasm of prostate | CPT/HCPCS: 80048; 82607; G0103 ==

== ENCOUNTER 2025-06-08 07:30 | Outpatient (RCR) | payer MEDICARE, BC, SELFPAY ==
--- NOTE | 2025-04-15 09:43 | PT.OPEX ---
PT [place] [facility] PT [facility] Out[facility] Eval Start: 04/15/25 07:41 Freq: Status: Active Protocol: Document 04/15/25 07:42 CRP (Rec: 04/15/25 09:41 CRP [id number]) E-signed By Luis Antonio Bustos PT Physical Therapy Outpatient Evaluation Insurance Information Recert Due Date 07/14/25 Insurance Name Medicare B Medical Diagnosis Weakness of Left quadriceps muscle Referring MD Dr Allison Subjective Preferred Name Du Subjective Pt notes that about 2 years ago he started having an issue of L knee clicking when going from bent to straight. Pt has noted that this is becoming more prevalent. If going from inactive to active he will have increased chance of this happening. When this occurs he will feel the click in the muscle behind the knee and his leg will generically feel weak. No numbness or tingling is present. Has hx of low back soreness but this does not seem to correlate with his L LE issue. No knee swelling. No past knee injuries. This has become more of an issue for the last 6 months. Current Work Status Retired Objective Other/Pertinent Trunk ROM: Flex WNL, Ext mod dec, R SB mod dec with L Objective LBP, L SB mod dec, bilat rot mod/christian dec. No radicular pain Slump testing - shows decreased knee ext on L but no reproduction of sxs Hip ROM: Decreased hip abduction moderately on L compared to R Knee ROM: flex L limited in range at 125 deg with reproduction of sxs. Knee ext lacking 5-10 deg on L. MMT: Knee Ext R 4-/5. Hip ext and abd 3+ to 4-/5 on L. Palpable pain posterolat joint line at L knee Assessment Assessment/ Pt presents to the clinic with signs and sxs that Impression suggest L knee mechanical dysfunction, L knee motor control dysfunction, L hip mechanical dysfunction, L hip motor control dysfunction and generalized L lower quadrant weakness. Skilled PT is necessary to incorporate ther ex, nm rigoberto, manual therapy and pt education to decrease pain and improve functional mobility. Primary Functional Sit to stand Limitations Walking Stairs Exercise Plan of Care Rehabilitation Excellent Potential Physical Therapy 1. Pt will be independent with HEP in 8 weeks. Goals 2. Pt will go sit to stand without issues in 10 weeks. 3. Pt will complete full exercise routine without knee issues or feelings of L weakness in 12 weeks. Coordination/ Referral Source Communication With Treatment Plan/ Joint Mobilization,Manual Therapy,Neuromuscular Re-ed, Direct Interventions Therapeutic Activities,Therapeutic Exercises Frequency/Duration 1-2x/wk for 12 weeks Patient Will Be Completion of LTG(s),Skills Plateau,Independent w/HEP, Discharged From Independently Progressing Therapy Evaluation Billing Untimed Code 40 Treatment Minutes Complexity Moderate Certification Information Initial 04/15/25 Certification Date Ending Certification 07/14/25 Date Provider Signature Yes Required Provider Signature POC & Medical Necessity Shows Agreement With Physician NPI Number Write NPI# Here Physician Comment/ : Change Physician Signature Please Sign/Date Here & Date Requested
== END 2025-06-08 09:24 | disposition home or self-care (01) ==
PROVIDERS: PCP Internal Medicine; Visit Provider Internal Medicine
DX: M62.81 Muscle weakness (generalized) (principal); Z51.89 Encounter for other specified aftercare
CPT/HCPCS: 97110; 97140; 97162